=== PATIENT | female | born 1970 | race Caucasian/White ===

== ENCOUNTER → 2024-04-09 10:34 | Outpatient (BNVA) | payer BC, SELFPAY | PROVIDERS: Visit Provider Nurse Practitioner Family | DX: F41.9 Anxiety disorder, unspecified (principal); F32.A Depression, unspecified; E11.51 Type 2 diabetes mellitus with diabetic peripheral angiopathy without gangrene; I70.209 Unspecified atherosclerosis of native arteries of extremities, unspecified extremity; I10 Essential (primary) hypertension; E55.9 Vitamin D deficiency, unspecified | CPT/HCPCS: 80053; 80061; 81003; 82306; 83036; 84443; 85025 ==

== ENCOUNTER → 2024-07-18 09:48 | Outpatient (BNVA) | payer MEDICARE, SELFPAY | PROVIDERS: PCP Nurse Practitioner Family; Visit Provider Nurse Practitioner Family | DX: E55.9 Vitamin D deficiency, unspecified (principal); I10 Essential (primary) hypertension; E11.51 Type 2 diabetes mellitus with diabetic peripheral angiopathy without gangrene; I70.209 Unspecified atherosclerosis of native arteries of extremities, unspecified extremity; D50.9 Iron deficiency anemia, unspecified; J34.89 Other specified disorders of nose and nasal sinuses; Z86.14 Personal history of Methicillin resistant Staphylococcus aureus infection | CPT/HCPCS: 80053; 80061; 81003; 82306; 82607; 83036; 83550; 84443; 85025 ==

== ENCOUNTER → 2024-07-31 11:38 | Outpatient (BNVA) | payer MEDICARE, SELFPAY | PROVIDERS: PCP Nurse Practitioner Family; Visit Provider Nurse Practitioner Family | DX: L03.115 Cellulitis of right lower limb (principal) | CPT/HCPCS: 87070; 87075; 87205 ==

== ENCOUNTER → 2024-08-01 12:09 | Outpatient (BNVA) | payer MEDICARE, SELFPAY | PROVIDERS: PCP Nurse Practitioner Family; Visit Provider Podiatrist Foot & Ankle Surgery | DX: E11.621 Type 2 diabetes mellitus with foot ulcer (principal); L97.513 Non-pressure chronic ulcer of other part of right foot with necrosis of muscle; E11.51 Type 2 diabetes mellitus with diabetic peripheral angiopathy without gangrene; I70.201 Unspecified atherosclerosis of native arteries of extremities, right leg; Z79.84 Long term (current) use of oral hypoglycemic drugs | CPT/HCPCS: 11043; 99204 ==

== ENCOUNTER → 2024-08-06 11:42 | Outpatient (BNVA) | payer MEDICARE, SELFPAY | PROVIDERS: PCP Nurse Practitioner Family; Visit Provider Nurse Practitioner Family | DX: N39.0 Urinary tract infection, site not specified (principal) | CPT/HCPCS: 81003 ==

== ENCOUNTER → 2024-08-08 07:50 | Outpatient (BNVA) | payer MEDICARE, SELFPAY | PROVIDERS: PCP Nurse Practitioner Family; Visit Provider Thoracic Surgery (Cardiothoracic Vascular Surgery) | DX: I96 Gangrene, not elsewhere classified (principal); T87.81 Dehiscence of amputation stump; Y83.8 Other surgical procedures as the cause of abnormal reaction of the patient, or of later complication, without mention of misadventure at the time of the procedure; Z89.421 Acquired absence of other right toe(s) | CPT/HCPCS: 11042; 99213; A6212 ==

== ENCOUNTER → 2024-09-02 13:13 | Outpatient (BNVA) | payer MEDICARE, SELFPAY | PROVIDERS: PCP Nurse Practitioner Family; Visit Provider Thoracic Surgery (Cardiothoracic Vascular Surgery) | DX: I96 Gangrene, not elsewhere classified (principal); T87.81 Dehiscence of amputation stump; Y83.8 Other surgical procedures as the cause of abnormal reaction of the patient, or of later complication, without mention of misadventure at the time of the procedure; Z89.421 Acquired absence of other right toe(s) | CPT/HCPCS: 97597; A6219 ==

== ENCOUNTER 2025-01-19 21:34 | Inpatient (IN) | payer MEDICARE, SELFPAY ==
[2025-01-19 21:35] VITALS: BP 92/56; PULSE 61; RESP 15; TEMP 36.4; O2SAT 97; BMI 37.2
--- NOTE | 2025-01-19 21:40 | ED_ITS ---
HPI - General Adult 2 General: Chief complaint: Syncope Stated complaint: SYNCOPE, WEAKNESS Time Seen by Provider: 01/19/25 21:40 History of Present Illness: 54-year-old female presents emergency ro om complaining of syncope and weakness. Patient lives in the home states she has no access to her conditioning she has had significant exposure to heat last few days she is on lisinopril and metformin she developed nausea vomiting and headache. Patient is diabetic her blood sugar in the field was 96. She was given a liter of normal saline and a liter of Plasma-Lyte en route despite this her blood pressure still in 80 systolic on arrival. Patient had episode of syncope after nausea and vomiting fell and hit her head she is on Eliquis for DVT PE. She has several abrasions on the right cheek. Associated symptoms: Reports nausea and vomiting; Deny chest pain, dyspnea or rash Related Data Home Medications ?Medication ?Instructions ?Recorded ?Confirmed cetirizine 10 mg capsule (Zyrtec) 10 mg PO DAILY PRN 1 08/21/24 diclofenac sodium 1 % topical gel 2 g topical QID 03/2508/21/24 (Voltaren Arthritis Pain) fluticasone propionate 50 1 spray intranasal DAILY 03/2508/21/24 mcg/actuation nasal spray,suspension (Flonase Allergy Relief) nystatin 100,000 unit/gram topical 1 applic topical BI D 04/09/24 08/21/24 powder pantoprazole 40 mg tablet,delayed 40 mg PO DAILY 04/0908/21/24 release Previous Rx's ?Medication ?Instructions ?Recorded albuterol sulfate 90 mcg/actuation 2 puff inhalation Q ID 30 days #8.5 04/09/24 aerosol inhaler grams ferrous sulfate 325 mg (65 mg 325 mg PO DAILY 30 days #30 tabs 05/15/24 iron) tablet ketoconazole 2 % shampoo 1 applic topical .twice week ly 30 06/10/24 days #120 mL mupirocin 2 % topical ointment 1 applic topical BID #1 5 grams 07/18/24 cholecalciferol (vitamin D3) 1,250 50,000 unit PO .wejani kly 3 months 07/24/24 mcg (50,000 unit) tablet #13 tabs methylprednisolone 4 mg tablets in See Rx Instructions PO PER PKG DIR 07/24/24 a dose pack (Medrol (Crow)) #21 ea clindamycin HCl 300 mg capsule 600 mg (2 x 300 mg) PO BID 10 days 07/31/24 #40 caps metformin 500 mg tablet,extended 1,000 mg (2 x 500 mg) PO BID #360 09/02/24 release 24 hr tabs pregabalin 150 mg capsule 150 mg PO BID 30 days #60 ca ps 09/02/24 duloxetine 60 mg capsule,delayed 60 mg PO DAILY 30 day s #30 caps 10/13/24 release rivaroxaban 10 mg tablet (Xarelto) See Rx Instructions .Route 11/10/24 .COMPLEX #30 tabs tizanidine 2 mg tablet See Rx Instructions .Route 0 11/19/24 .COMPLEX #90 tabs trazodone 100 mg tablet 100 mg PO DAILY 30 days #30 tabs 11/19/24 lisinopril 40 mg tablet See Rx Instructions .Route 0 12/18/24 .COMPLEX #90 tabs metoprolol succinate 200 mg 200 mg PO DAILY #30 tabs 0 12/25/24 tablet,extended release 24 hr Allergies Allergy/AdvReac Type Severity Reaction Status Date / Time Penicillins Allergy Intermediate ADR-Itching Verified 08/21/24 14:04 Review of Systems 2 Const: Denies: fever(s) or chills Card: Denies: chest pain Resp: Denies: dyspnea GI: Reports: nausea, vomiting and diarrhea; Denies: abdominal pain, hematemesis, coffee ground emesis, hematochezia or melena : Denies: dysuria, urinary frequency or urinary urgency Musc: Denies: neck pain or back pain Skin/Breast: Denies: rash PFSH ED 2 PFSH: Medical History Cellulitis of foot Cellulitis of right foot Cellulitis Allergic contact dermatitis of scalp Urinary tract infection Hx of mitral valve disorder History of MRSA infection Nasal sore Seborrheic dermatitis Iron deficiency anemia Neuropathy of both feet Diabetic foot Amputated toe of right foot Amputated toe of left foot Influenza vaccine needed Chronic obstructive pulmonary disease Muscle spasm Breast cancer screening by mammogram Vitamin D deficiency Chronic anticoagulation Diabetic neuropathy, painful Insomnia Anxiety and depression Gastroesophageal reflux disease Hx pulmonary embolism Essential hypertension 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 Social History Smoking and tobacco/nicotine status: current every day tobacco/nicotine user cigarettes Packs smoked per day: 1 Years cigarettes smoked: 35 Quit status (tobacco/nicotine): not considering quitting Second hand smoke exposure: No Alcohol intake: former Year of sobriety/quit date alcohol: 3 Former alcohol use details: vodka and tequila Substance/Drug Use: current Substance/Drug use frequency: daily Adopted: No Caregiver/support person: Yes (lives with friend) Lives independently: No Household members: significant other Housing: Apartment Marital status: Life Partner Physical Exam 2 Const: GENERAL APPEARANCE: cooperative ORIENTATION/CONSCIOUSNESS: Yes awake, Yes oriented to person, Yes oriented to place and Yes oriented to time HENMT: COMMON NORMALS: normocephalic, atraumatic and hearing grossly normal bilaterally HEAD & SCALP: normocephalic and atraumatic Resp: COMMON NORMALS: normal respiratory effort, No retractions, No use of accessory muscles and clear to auscultation bilaterally AUSCULTATION: clear to auscultation bilaterally Cardio: COMMON NORMALS: regular rate, regular rhythm and No murmurs present (Cardio) RATE: regular rate RHYTHM: regular rhythm GI: COMMON NORMALS: Soft to palpation and No hepatosplenomegaly present A USCULTATION: Yes normoactive bowel sounds PALPATION: Yes Soft to palpation, No Tenderness to palpation present (GI), No Guarding due to palpation present (GI) and Yes No hepatosplenomegaly present Extremity: COMMON NORMALS: normal to inspection, capillary refill normal, no clubbing, cyanosis or edema, no calf tenderness and no pedal edema Neuro: SENSORIUM/ORIENTATION: Yes oriented to person, Yes oriented to place and Yes oriented to time Skin: COMMON NORMALS: no rashes or lesions noted GENERAL SKIN EXAM: no rashes or lesions noted Course 2 Vital Signs: Vital signs: Vital Signs Temperature 97.6 F 01/19/25 21:35 Pulse Rate 61 01/19/25 21:35 Respiratory Rate 15 01/19/25 21:35 Blood Pressure 92/56 01/19/25 21:35 Pulse Oximetry 97 01/19/25 21:35 Oxygen Delivery Me thod Room Air 01/19/25 21:35 MDM - General Adult Lab Data 01/19/25 22:07 01/19/25 22:[address] 01/19/25 21:58 IMPRESSION: No acute intracranial abnormality. Laboratory Results WBC 11.63 10^3/uL (3.29-11.43) H 01/19/25 22:07 RBC 4.94 10^6/uL (3.85-5.65) 01/19/25 22:07 Hgb 12.70 g/dL (11.27-16.99) 01/19/25 22:07 Hct 43.0 % (36-47) 01/19/25 22:07 MCV 87.0 fl (85-98) 01/19/25 22:07 MCH 25.7 pg (27-33) L 01/19/25 22:07 MCHC 29.5 g/dL (30-55) L 01/19/25 22:07 RDW 18.6 % (12.1-15.1) H 01/19/25 22:07 Plt Count 382 10^3/cmm (157-399) 01/19/25 22:07 MPV 10.8 fL (7.4-10.4) H 01/19/25 22:07 Neut % (Auto) 72.4 % 01/19/25 22:07 Lymph % (Auto) 18.3 % 01/19/25 22:07 O'Brien % (Auto) 5.9 % 01/19/25 22:07 Eos % (Auto) 2.6 % 01/19/25 22:07 Baso % (Auto) 0.5 % 01/19/25 22:07 Neut # (Auto) 8.41 10^3/uL (1.8-7.7) H 01/19/25 22:07 Lymph # (Auto) 2.1 10^3/uL (0.8-4.8) 01/19/25 22:07 O'Brien # (Auto) 0.7 10^3/uL (0.2-0.9) 01/19/25 22:07 Eos # (Auto) 0.3 10^3/uL (0.0-0.8) 01/19/25 22:07 Baso # (Auto) 0.1 10^3/uL (0.0-0.1) 01/19/25 22:07 Nucleated RBC % (auto) 0 % 01/19/25 22:07 Nucleated RBCs # 0.0 /100WBC 01/19/25 22:07 Sodium 138 mmol/L (136-145) 01/19/25 22:07 Potassium 4.4 mmol/L (3.5-5.1) 01/19/25 22:07 Chloride 104 mmol/L (98-107) 01/19/25 22:07 Carbon Dioxide 18 mmol/L (22-29) L 01/19/25 22:07 Anion Gap 20.4 (5-19) H 01/19/25 22:07 BUN 40 mg/dL (6-20) H 01/19/25 22:07 Creatinine 3.0 mg/dL (0.5-0.9) H 01/19/25 22:07 GFR Calculation 16.1 mL/min (90-130) L 01/19/25 22:07 Glucose 92 mg/dL (65-115) 01/19/25 22:07 Calculated Osmolality 295 mOsm/kg (285-295) 01/19/25 22:07 Calcium 8.5 mg/dL (8.5-10.5) 01/19/25 22:07 Total Bilirubin 0.3 mg/dL (0.15-1.2) 01/19/25 22:07 AST 8 U/L (0-32) 01/19/25 22:07 ALT 7 U/L (0-33) 01/19/25 22:07 Alkaline Phosphatase 155 U/L (35-105) H 01/19/25 22:07 Total Protein 6.9 g/dL (6.6-8.7) 01/19/25 22:07 Albumin 3.6 g/dL (3.5-5.2) 01/19/25 22:07 Globulin 3.3 g/dL (1.3-4.6) 01/19/25 22:07 Discharge Plan Discharge Condition: Stable Prescriptions: No Action ferrous sulfate 325 mg (65 mg iron) tablet 325 mg PO DAILY 30 Days Qty: 30 1RF mupirocin 2 % ointment 1 applic topical BID Qty: 15 1RF clindamycin HCl 300 mg capsule 600 mg PO BID 10 Days Qty: 40 0RF Zyrtec 10 mg capsule 10 mg PO DAILY PRN pantoprazole 40 mg tablet,delayed release (DR/EC) 40 mg PO DAILY diclofenac sodium [Voltaren Arthritis Pain] 1 % gel 2 g topical QID Rx Instructions: apply to single elbow, wrist or hand; for hand includes palm/fingers/back of hand fluticasone propionate [Flonase Allergy Relief] 50 mcg/actuation spray,suspension 1 spray intranasal DAILY Rx Instructions: administer into each nostril nystatin 100,000 unit/gram powder 1 applic topical BID albuterol sulfate 90 mcg/actuation HFA aerosol inhaler 2 puff inhalation QID 30 Days Qty: 8.5 5RF methylprednisolone [Medrol (Crow)] 4 mg tablets,dose pack See Rx Instructions PO PER PKG DIR Qty: 21 0RF Rx Instructions: PO PER PKG DIR PO per package directions; cholecalciferol (vitamin D3) 1,250 mcg (50,000 unit) tablet 50,000 unit PO .weekly 90 Days Qty: 13 1RF metoprolol succinate 200 mg tablet extended release 24 hr 200 mg PO DAILY Qty: 30 2RF ketoconazole 2 % shampoo 1 applic topical .twice weekly 30 Days Qty: 120 5RF Rx Instructions: Lather shampoo and leave on for 5 minutes then rinse. Can use twice weekly as needed metformin 500 mg tablet extended release 24 hr 1,000 mg PO BID Qty: 360 0RF pregabalin 150 mg capsule 150 mg PO BID 30 Days Qty: 60 2RF duloxetine 60 mg capsule,delayed release(DR/EC) 60 mg PO DAILY 30 Days Qty: 30 2RF Rx Instructions: Can have 90 day supply if insurance is agreeable Xarelto 10 mg tablet See Rx Instructions .ROUTE .COMPLEX Qty: 30 2RF Dose Instruction: TAKE 1 TABLET BY MOUTH DAILY Rx Instructions: TAKE 1 TABLET BY MOUTH DAILY tizanidine 2 mg tablet See Rx Instructions .ROUTE .COMPLEX Qty: 90 0RF Dose Instruction: TAKE 1 TABLET BY MOUTH EVERY 8 HOURS NEEDED FOR MUSCLE SPASMS Rx Instructions: TAKE 1 TABLET BY MOUTH EVERY 8 HOURS NEEDED FOR MUSCLE SPASMS trazodone 100 mg tablet 100 mg PO DAILY 30 Days Qty: 30 2RF lisinopril 40 mg tablet See Rx Instructions .ROUTE .COMPLEX Qty: 90 1RF Dose Instruction: TAKE 1 TABLET BY MOUTH EVERY DAY Rx Instructions: TAKE 1 TABLET BY MOUTH EVERY DAY Referrals: JONY Diaz, [facility] [Nurse Practitioner, Family Practice] Print Language: Ecuadorean Coding Level of Care Code ED [employer] Attendant for Orlando Patel
--- NOTE | 2025-01-19 21:41 | ECG_ITS ---
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 Measurements Intervals [place] Rate: 60 P: 53 WA: 162 QRS: 31 QRSD: 93 T: 42 QT: 427 QTc: 427 Interpretive Statements SINUS RHYTHM LOW QRS VOLTAGE IN PRECORDIAL LEADS [QRS DEFLECTION < 1.0 mV IN CHEST LEADS] No previous ECG available for comparison Electronically Signed On 01-22-2025 09:05:48 CDT by Puma Butterfield M.D. [id number]
--- NOTE | 2025-01-19 21:58 | CTR_ITS ---
PROCEDURE INFORMATION: Exam: CT Head Without Contrast Exam date and time: 01/19/2025 10:22 PM Age: 54 years old Clinical indication: Injury or trauma; Fall; Blunt trauma (contusions or hematomas) and concussion/head injury; With loss of consciousness; Not specified; Additional info: Trauma chronic anticoagulation TECHNIQUE: Imaging protocol: Computed tomography of the head without contrast. Radiation optimization: All CT scans at this facility use at least one of these dose optimization techniques: automated exposure control; mA and/or kV adjustment per patient size (includes targeted exams where dose is matched to clinical indication); or iterative reconstruction. COMPARISON: No relevant prior studies available. RADIATION DOSE METRICS: Total DLP (mGy-cm): 1068.4 FINDINGS: Brain: No hemorrhage. No edema, mass effect or midline shift. Cerebral ventricles: No ventriculomegaly. Paranasal sinuses: Visualized sinuses are unremarkable. No fluid levels. Mastoid air cells: No mastoid effusion. Bones: Unremarkable. No acute fracture. Soft tissues: Unremarkable. CT/CT head wo con* [id number] IMPRESSION: No acute intracranial abnormality.
[2025-01-19 22:13] VITALS: BP 100/69; PULSE 57; RESP 13; O2SAT 100
[2025-01-19 22:37] LABS: Hematocrit 43.0 % (36-47); Hemoglobin 12.70 g/dL (11.27-16.99); Mean Corpuscular HGB Conc 29.5 g/dL (30-55); Mean Corpuscular Hemoglobin 25.7 pg (27-33); Mean Corpuscular Volume 87.0 fl (85-98); Nucleated Red Blood Cells % 0 %; Platelet Count 382 10^3/cmm (157-399); Red Blood Count 4.94 10^6/uL (3.85-5.65); White Blood Count 11.63 10^3/uL (3.29-11.43)
[2025-01-19 22:43] VITALS: BP 83/60; PULSE 57; RESP 14; O2SAT 98
[2025-01-19] MEDS: tetanus-dipt-pertussis 0.5 mL SDV IM (22:58)
[2025-01-19 22:59] LABS: Alanine Aminotransferase 7 U/L (0-33); Albumin Level 3.6 g/dL (3.5-5.2); Alkaline Phosphatase 155 U/L (35-105); Anion Gap 20.4 (5-19); Aspartate Amino Transferase 8 U/L (0-32); Blood Urea Nitrogen 40 mg/dL (6-20); Calcium 8.5 mg/dL (8.5-10.5); Carbon Dioxide 18 mmol/L (22-29); Chloride 104 mmol/L (98-107); Creatinine Clr Calc Pharmacy 22.9874; Globulin 3.3 g/dL (1.3-4.6); Glucose 92 mg/dL (65-115); Osmolality Calculated 295 mOsm/kg (285-295); Potassium 4.4 mmol/L (3.5-5.1); Sodium 138 mmol/L (136-145); Total Protein 6.9 g/dL (6.6-8.7)
[2025-01-19 23:13] VITALS: BP 100/62; PULSE 58; RESP 15; O2SAT 99
[2025-01-19 23:38] VITALS: BP 100/61; BP 103/61; BP 86/58; BP 87/50; PULSE 55; PULSE 57; PULSE 60; PULSE 70; RESP 13; O2SAT 98
[2025-01-19 23:42] LABS: Glucose Urine UA Negative (Normal); Nitrate Urine Negative (Negative); Specific Gravity, Urine 1.017 (1.005-1.030)
[2025-01-19 23:47] LABS: Add Urine Microscopic? YES; Universal Test for UA Present (0)
[2025-01-20] VITALS (9 sets, daily range): BP systolic 94–131; BP diastolic 61–84; PULSE 55–79; RESP 12–18; TEMP 36.3–36.4; O2SAT 95–98
[2025-01-20 00:17] LABS: UA Slide Review UA Slide Review Perf
--- NOTE | 2025-01-20 01:17 | P.HP_ITS ---
Providers/Chief Complaint 2 Admitting Physician: Jenni Manning MD Chief Complaint: SYNCOPE, WEAKNESS History of Present Illness Britt Avalos is a 54 year old female with past medical history of diabetes mellitus, history of PE on chronic a/c, presenting to the hospital today with a week of being unwell. Patient reports that about 6 days ago she started to experience multiple episodes of nausea per day. She also felt extremely dehydrated in her home. She states that her home currently does not have any air and no cooling. She has been going outdoors into her garden to try to stay cool. She denies any abdominal pain or diarrhea. Reports that her boyfriend had similar symptoms of nausea and vomiting prior to her having acquired the symptoms however he has been asymptomatic for over a week at this point. Denies any chest pain dyspnea or palpitations. Today during an episode of vomiting, patient states that she lost consciousness. She fell to the floor and has a scratch over the right side of her face as a result of this fall. No other injuries are reported. Denies any fever. Denies any weakness in any limb. Labs are notable for FAWN with creatinine at 3.0 Review of Systems 2 General: Reports: 10 or more systems reviewed and unremarkable except in HPI and below Const: Denies: fever(s), chills or body aches Eyes: Denies: change in vision, blurry vision or photophobia ENMT: Reports: hoarseness; Denies: throat pain, enlarged tonsils, odynophagia or nasal congestion Card: Denies: chest pain, palpitations, irregular heart rhythm, edema, swelling of feet/ankles, lightheadedness, pre-syncope, dyspnea on exertion or orthopnea Resp: Denies: dyspnea, productive cough, non-productive cough, wheezing, stridor, pain on inspiration, change in phlegm color, hemoptysis or chest congestion GI: Denies: abdominal pain, nausea, vomiting, hematemesis, coffee ground emesis, dysphagia, heartburn, diarrhea, constipation, GI cramping, change in stool character, hematochezia or melena : Denies: flank pain, difficulty voiding, dysuria, urinary frequency, urinary urgency, urinary hesitancy or hematuria Musc: Denies: neck pain, back pain, extremity pain, joint swelling, joint warmth or deformity Neuro: Denies: headache(s), numbness in extremities, weakness in extremities, sensory changes, difficulty walking, frequent falls, dizziness, vertigo, behavioral changes, Slurred speech present or seizure-like activity Psych: Denies: anxiety, depression, suicidal ideation or homicidal ideation Endo: Denies: polyuria, polydipsia, tired all the time, cold intolerance or hot flashes Immanuel/Lymph: Denies: easy bruising or easy bleeding Medications/Allergies Home Medications ?Medication ?Instructions ?Recorded ?Confirmed ?Last Taken ?Type albuterol sulfate 90 mcg/actuation 2 puff inhalation Q ID 30 days #8.5 04/09/24 08/21/24 Unknown Rx aerosol inhaler grams cetirizine 10 mg capsule (Zyrtec) 10 mg PO DAILY PRN 1 08/21/24 Unknown History diclofenac sodium 1 % topical gel 2 g topical QID 03/2508/21/24 Unknown History (Voltaren Arthritis Pain) fluticasone propionate 50 1 spray intranasal DAILY 03/2508/21/24 Unknown History mcg/actuation nasal spray,suspension (Flonase Allergy Relief) nystatin 100,000 unit/gram topical 1 applic topical BI D 04/09/24 08/21/24 Unknown History powder pantoprazole 40 mg tablet,delayed 40 mg PO DAILY 04/0908/21/24 Unknown History release ferrous sulfate 325 mg (65 mg 325 mg PO DAILY 30 days #30 tabs 05/15/24 08/21/24 Unknown Rx iron) tablet ketoconazole 2 % shampoo 1 applic topical .twice week ly 30 06/10/24 08/21/24 Unknown Rx days #120 mL mupirocin 2 % topical ointment 1 applic topical BID #1 5 grams 07/18/24 08/21/24 Unknown Rx cholecalciferol (vitamin D3) 1,250 50,000 unit PO .donald kly 3 months 07/24/24 08/21/24 Unknown Rx mcg (50,000 unit) tablet #13 tabs methylprednisolone 4 mg tablets in See Rx Instructions PO PER PKG DIR 07/24/24 08/21/24 Unknown Rx a dose pack (Medrol (Crow)) #21 ea clindamycin HCl 300 mg capsule 600 mg (2 x 300 mg) PO BID 10 days 07/31/24 08/21/24 Unknown Rx #40 caps metformin 500 mg tablet,extended 1,000 mg (2 x 500 mg) PO BID #360 09/02/24 Unknown Rx release 24 hr tabs pregabalin 150 mg capsule 150 mg PO BID 30 days #60 ca ps 09/02/24 Unknown Rx duloxetine 60 mg capsule,delayed 60 mg PO DAILY 30 day s #30 caps 10/13/24 Unknown Rx release rivaroxaban 10 mg tablet (Xarelto) See Rx Instructions .Route 11/10/24 Unknown Rx .COMPLEX #30 tabs tizanidine 2 mg tablet See Rx Instructions .Route 0 11/19/24 Unknown Rx .COMPLEX #90 tabs trazodone 100 mg tablet 100 mg PO DAILY 30 days #30 tabs 11/19/24 Unknown Rx lisinopril 40 mg tablet See Rx Instructions .Route 0 12/18/24 Unknown Rx .COMPLEX #90 tabs metoprolol succinate 200 mg 200 mg PO DAILY #30 tabs 0 12/25/24 12/25/24 Unknown Rx tablet,extended release 24 hr Allergies Allergy/AdvReac Type Severity Reaction Status Date / Time Penicillins Allergy Intermediate ADR-Itching Verified 08/21/24 14:04 PFSH Acute 2 PFSH: Medical History Cellulitis of foot Cellulitis of right foot Cellulitis Allergic contact dermatitis of scalp Urinary tract infection Hx of mitral valve disorder History of MRSA infection Nasal sore Seborrheic dermatitis Iron deficiency anemia Neuropathy of both feet Diabetic foot Amputated toe of right foot Amputated toe of left foot Influenza vaccine needed Chronic obstructive pulmonary disease Muscle spasm Breast cancer screening by mammogram Vitamin D deficiency Chronic anticoagulation Diabetic neuropathy, painful Insomnia Anxiety and depression Gastroesophageal reflux disease Hx pulmonary embolism Essential hypertension 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 Social History Smoking and tobacco/nicotine status: current every day tobacco/nicotine user cigarettes Packs smoked per day: 1 Years cigarettes smoked: 35 Quit status (tobacco/nicotine): not considering quitting Second hand smoke exposure: No Alcohol intake: former Year of sobriety/quit date alcohol: 3 Former alcohol use details: vodka and tequila Substance/Drug Use: current Substance/Drug use frequency: daily Adopted: No Caregiver/support person: Yes (lives with friend) Lives independently: No Household members: significant other Housing: Apartment Marital status: Life Partner Vitals/I&O/Wt Last Vital Signs Temp 97.6 F 01/19/25 21:35 Pulse 55 L 01/19/25 23:38 Resp 13 01/19/25 23:38 BP 103/61 01/19/25 23:38 Pulse Ox 98 01/19/25 23:38 O2 Del Method Room Air 01/19/25 23:38 01/19/25 01/19/25 01/20/25 14:59 22:59 06:59 Intake Total 1000 / 1000 Balance 1000 / 1000 Weight last 48 hrs Weight 95.254 kg Physical Exam 2 Narrative: General: No acute distress, AO x3 HEENT: PERRLA, pupils bilaterally equal and reactive, pallors not present Chest: Normal vesicular breath sounds, no added sounds, equal good air entry bilaterally CVS: S1-S2 regular, no murmurs, no tachycardia, no gallops, no rubs Abdomen: Soft, nontender, no organomegaly, bowel sounds present Neuro: No focal deficits, no facial deformity, AO x3, power 5/5 in all limbs Data 01/19/25 22:07 01/19/25 22:07 Other Labs: Radiology Impressions Head CT 01/19/25 21:58 IMPRESSION: No acute intracranial abnormality. Abdomen/Pelvis CT 01/20/25 01:24 IMPRESSION: No hydronephrosis. No calcified renal or ureteral stones. Laboratory Results WBC 11.63 10^3/uL (3.29-11.43) H 01/19/25 22:07 RBC 4.94 10^6/uL (3.85-5.65) 01/19/25 22:07 Hgb 12.70 g/dL (11.27-16.99) 01/19/25 22:07 Hct 43.0 % (36-47) 01/19/25 22:07 MCV 87.0 fl (85-98) 01/19/25 22:07 MCH 25.7 pg (27-33) L 01/19/25 22:07 MCHC 29.5 g/dL (30-55) L 01/19/25 22:07 RDW 18.6 % (12.1-15.1) H 01/19/25 22:07 Plt Count 382 10^3/cmm (157-399) 01/19/25 22:07 MPV 10.8 fL (7.4-10.4) H 01/19/25 22:07 Neut % (Auto) 72.4 % 01/19/25 22:07 Lymph % (Auto) 18.3 % 01/19/25 22:07 [place] % (Auto) 5.9 % 01/19/25 22:07 Eos % (Auto) 2.6 % 01/19/25 22:07 Baso % (Auto) 0.5 % 01/19/25 22:07 Neut # (Auto) 8.41 10^3/uL (1.8-7.7) H 01/19/25 22:07 Lymph # (Auto) 2.1 10^3/uL (0.8-4.8) 01/19/25 22:07 [place] # (Auto) 0.7 10^3/uL (0.2-0.9) 01/19/25 22:07 Eos # (Auto) 0.3 10^3/uL (0.0-0.8) 01/19/25 22:07 Baso # (Auto) 0.1 10^3/uL (0.0-0.1) 01/19/25 22:07 Nucleated RBC % (auto) 0 % 01/19/25 22:07 Nucleated RBCs # 0.0 /100WBC 01/19/25 22:07 Sodium 138 mmol/L (136-145) 01/19/25 22:07 Potassium 4.4 mmol/L (3.5-5.1) 01/19/25 22:07 Chloride 104 mmol/L (98-107) 01/19/25 22:07 Carbon Dioxide 18 mmol/L (22-29) L 01/19/25 22:07 Anion Gap 20.4 (5-19) H 01/19/25 22:07 BUN 40 mg/dL (6-20) H 01/19/25 22:07 Creatinine 3.0 mg/dL (0.5-0.9) H 01/19/25 22:07 GFR Calculation 16.1 mL/min (90-130) L 01/19/25 22:07 Glucose 92 mg/dL (65-115) 01/19/25 22:07 Calculated Osmolality 295 mOsm/kg (285-295) 01/19/25 22:07 Calcium 8.5 mg/dL (8.5-10.5) 01/19/25 22:07 Total Bilirubin 0.3 mg/dL (0.15-1.2) 01/19/25 22:07 AST 8 U/L (0-32) 01/19/25 22:07 ALT 7 U/L (0-33) 01/19/25 22:07 Alkaline Phosphatase 155 U/L (35-105) H 01/19/25 22:07 Troponin T 5th Gen ng/L 9 ng/L (0-10) 01/19/25 22:07 Total Protein 6.9 g/dL (6.6-8.7) 01/19/25 22:07 Albumin 3.6 g/dL (3.5-5.2) 01/19/25 22:07 Globulin 3.3 g/dL (1.3-4.6) 01/19/25 22:07 Urine Color Yellow (Yellow) 01/19/25 23: Urine Appearance Cloudy (CLEAR) A 01/19/25 23: Urine pH 5.0 (5-7) 01/19/25 23: Ur Specific [place] 1.017 (1.005-1.030) 01/19/25 23: Urine Protein 1+ (Negative) A 01/19/25 23: Urine Glucose (UA) Negative (Normal) 01/19/25 23: Urine Ketones Trace (Negative) 01/19/25 23: Urine Blood Negative (Negative) 01/19/25: Urine Nitrate Negative (Negative) 01/19/25 23: Urine Bilirubin Negative (Negative) 01/19/25: Urine Urobilinogen 1.0 mg/dL (Negative) 01/19/25 23: Ur Leukocyte Esterase 2+ (Negative) A 01/19/25 23: Urine RBC 6-10 /hpf (0-2) 01/19/25 23:27 Urine WBC 51-100 /hpf (0-5) H 01/19/25 23:27 Ur Squamous Epith Cells 21-50 /hpf (0-5) H 01/19/25 23: Amorphous Sediment Not Reportable 01/19/25 23:27 Urine Bacteria 1+ /hpf (NONE) H 01/19/25 23:27 Hyaline Casts 176.66 /lpf 01/19/25 23:27 A&P Assessment and plan 1. FAWN (acute kidney injury): 54-year-old lady living at [facility], presenting with acute kidney injury with creatinine at 3.0. Previously noted normal kidney function with creatinine at 0.5 from July 2024. This is likely related to dehydration from combination of extreme heat and GI losses by way of vomiting. CT of the abdomen and pelvis has been ordered after admission. Currently does not show any obstructive pathology or hydronephrosis. Urine analysis showing 1+ proteinuria, 51-100 WBCs, however this does not appear to be a clean-catch specimen as it has 21-50 squamous epithelial cells additionally. Check CPK, TSH, hepatitis serology. Continue normal saline at 150 cc an hour as already started in the emergency room. Recheck creatinine with hydration, closely monitor urine output. 2. Syncope and collapse: Patient had a syncopal episode at home resulting in abrasions over the right side of her face. No gross tenderness at this time. No visual disturbances. CT head without any acute abnormality. No bony fractures. Suspect this may be related to orthostatic hypotension versus vasovagal as patient reports vomiting at the time of her syncope. Patient also noted to have sinus bradycardia with heart rate between 50-60. Will monitor closely on telemetry to see if bradycardia may have contributed to her syncopal episode. Home medication list shows metoprolol which we will hold for now, perhaps would need to be resumed at a lower dose. Obtain echocardiogram as chart notes a prior history of valvular disorder of the mitral valve and obtain carotid Doppler. 3. Dehydration: Likely from GI loss and extreme heat 4. Essential hypertension: Currently will hold lisinopril given acute kidney injury. 5. Chronic anticoagulation: Plan: Patient's home medication list needs to be verified and reconciled. DVT prophylaxis: Currently on Xarelto which we will continue Full code Requesting nicotine patch due to a history of chronic smoking, this has been ordered PDMP PDMP Reviewed: Not Reviewed Attestations 2 Medical Necessity Statement*: Greater than 2 midnight stay is anticipated Coding Level of Care Code Acute Code for [facility] Diagnoses FAWN (acute kidney injury) N17.9 Syncope and collapse R55 Dehydration E86.0 Essential hypertension I10 Chronic anticoagulation Z79.01
--- NOTE | 2025-01-20 01:24 | USCV_ITS ---
Josepfranklin Britt Age: 54 Gender: F : 1970 Exam Date: 01/20/2025 02:58 Ordering Phys: Jenni Manning MD Technologist: KAMILA [place] [facility] [place]: [place] Risk Factors: unknown Previous Vascular Surgery: unknown Right Brachial BP: 103 / 61 Left Brachial BP: / Right Left Velocity (cm/s) Spectral Plaque Velocity (cm/s) Spectral Plaque Syst/Diast Broadening Syst/Diast Broadening 92.10/ 22.00 Min Homo Prox CCA 64.70 / 24.10 Min Homo 72.60/ 28.40 Min Homo Mid CCA 64.30 / 20.60 Min Homo 40.00/ 16.70 Mod Shashi Distal CCA 52.20 / 26.00 Mod Shashi 63.40/ 19.30 Min Shashi Prox ICA 94.20 / 36.60 Min Shashi 84.70/ 34.60 Min Homo Mid ICA 59.90 / 19.50 Min Homo 53.60/ 19.70 Min Homo Distal ICA 68.50 / 25.60 Min Hetro 60.80 Min Hetro ECA 77.20 Min Hetro 2.10 ICA/CCA 1.80 Antegrade Vertebral Antegrade 24.40/ 6.50 cm/s 29.60/ 10.90 cm/s Tri Subclavian Tri 91.10 95.50 FINDINGS Comparison: none available. No significant elevation of systolic or diastolic velocities. Diffuse, mild bilateral scattered calcified plaque and intimal thickening throughout the common carotid arteries and extending through the bifurcation. Antegrade vertebral arteries. CONCLUSIONS Bilateral ICA stenosis less than 50%. Mild diffuse carotid atherosclerotic disease. Dr. Tiny Paul DO (Electronically Signed) Final Date: 20 January 2025 08:03 S
--- NOTE | 2025-01-20 01:24 | CTR_ITS ---
PROCEDURE INFORMATION: Exam: CT Abdomen And Pelvis Without Contrast Exam date and time: 01/20/2025 1:38 AM Age: 54 years old Clinical indication: Other: Signs of hydronephrosis; Additional info: Assess for hydronephrosis TECHNIQUE: Imaging protocol: Computed tomography of the abdomen and pelvis without contrast. Radiation optimization: All CT scans at this facility use at least one of these dose optimization techniques: automated exposure control; mA and/or kV adjustment per patient size (includes targeted exams where dose is matched to clinical indication); or iterative reconstruction. COMPARISON: No relevant prior studies available. RADIATION DOSE METRICS: Total DLP (mGy-cm): 849.4 FINDINGS: Liver: Hepatomegaly. Fatty liver. Gallbladder and biliary ducts: No calcified stones. No ductal dilation. Pancreas: No ductal dilation. Spleen: No splenomegaly. Adrenal glands: Normal. No mass. Kidneys and ureters: No hydronephrosis. No calcified renal or ureteral stones. Stomach and bowel: No obstruction. No mucosal thickening. Appendix: No evidence of appendicitis. Intraperitoneal space: No free air. No significant fluid collection. Vasculature: No abdominal aortic aneurysm. Lymph nodes: No enlarged lymph nodes. Urinary bladder: Unremarkable as visualized. Reproductive: Unremarkable. Bones/joints: Unremarkable. No acute fracture. Soft tissues: Unremarkable. CT/CT kidney stone [id number] IMPRESSION: No hydronephrosis. No calcified renal or ureteral stones.
--- NOTE | 2025-01-20 01:24 | USCV_ITS ---
Britt Avalos Age: 54 Gender: F : 1970 Exam Date: 01/20/2025 03:23 Ordering Phys: Jenni Manning MD Technologist: KAMILA Exam Location: [facility] – [place] Indication: syncope BP: 103 / 61 HR: 52 Rhythm: Sinus bradycardia Technical Quality: Adequate MEASUREMENTS (Male / Female) Normal Values 2D ECHO LV Diastolic Diameter PLAX 4.3 cm 4.2 - 5.9 / 3.9 - 5.3 cm IVS Diastolic Thickness 1.2 cm 0.6 - 1.0 / 0.6 - 0.9 cm IVS Systolic Thickness 1.6 cm LVPW Diastolic Thickness 1.5 cm 0.6 - 1.0 / 0.6 - 0.9 cm LVPW Systolic Thickness 1.3 cm LVOT Diameter 1.8 cm LV Ejection Fraction 2D Teich 60.5 % LV Ejection Fraction MOD 4C 58.4 % LV Ejection Fraction MOD 2C 69.6 % LV Ejection Fraction 2C AL 70.0 % LA Diameter 3.1 cm Aorta at Sinotubular Diameter 2.9 cm IVC Diameter 1.3 cm M-MODE LA Ao Ratio MM 0.9 AV Cusp Separation MM 1.7 cm DOPPLER AV Peak Velocity 154.0 cm/s LVOT Peak Velocity 154.0 cm/s AV Area Cont Eq vti 2.9 cm squared AV Area Cont Eq pk 2.5 cm squared MV Peak Velocity 98.0 cm/s MV Area PHT 2.6 cm squared Mitral E to A Ratio 0.8 TV Peak E Velocity 49.0 cm/s PV Peak Velocity 91.0 cm/s FINDINGS Left Ventricle Left ventricle is normal in size. LV systolic function is normal with EF 55-60%. No regional wall motion abnormalitis are seen. Grade 1 diastolic dysfunction. Right Ventricle Normal in size and function Right Atrium Normal in size Left Atrium Normal in size Mitral Valve Structurally normal mitral valve. Trace mitral regurgitation Aortic Valve Structurally normal aortic valve. No significant stenosis or regurgitation Tricuspid Valve Insufficient TR jet to estimate RVSP Pulmonic Valve Not well visualized Pericardium Normal Aorta Normal in size IVC Appears to be normal CONCLUSIONS LV systolic function is normal with EF of 55 to 60%. Grade 1 diastolic dysfunction. Trace mitral regurgitation. Puma Butterfield MD (Electronically Signed) Final Date: 20 January 2025 09:53 S
[2025-01-20 01:52] LABS: Troponin T (5th) Once 9 ng/L (0-10)
[2025-01-20 08:10] LABS: Hepatitis A Antibody IgM Non-Reactive (Nonreactive); Hepatitis B Surface Antigen Non-Reactive (Nonreactive)
[2025-01-20 11:38] LABS: Alanine Aminotransferase 7 U/L (0-33); Albumin Level 3.4 g/dL (3.5-5.2); Alkaline Phosphatase 141 U/L (35-105); Anion Gap 17.9 (5-19); Aspartate Amino Transferase 8 U/L (0-32); Blood Urea Nitrogen 34 mg/dL (6-20); Calcium 8.7 mg/dL (8.5-10.5); Carbon Dioxide 18 mmol/L (22-29); Chloride 111 mmol/L (98-107); Creatinine Clr Calc Pharmacy 43.1013; Globulin 3.1 g/dL (1.3-4.6); Glucose 121 mg/dL (65-115); Osmolality Calculated 305 mOsm/kg (285-295); Potassium 3.9 mmol/L (3.5-5.1); Sodium 143 mmol/L (136-145); Total Protein 6.5 g/dL (6.6-8.7)
--- NOTE | 2025-01-20 17:14 | P.PN_ITS ---
Subjective 2 Subjective: Patient was seen this morning, currently alert oriented x 3, following all commands, denies any fevers, chills does report lightheadedness, denies passing out, while here in the hospital blood pressure remained soft, Vitals/I&O/Wt Last Vital Signs Temp 97.5 F L 01/20/25 15:48 Pulse 73 01/20/25 15:48 Resp 16 01/20/25 15:48 BP 99/67 01/20/25 15:48 Pulse Ox 97 01/20/25 15:48 O2 Del Method Room Air 01/20/25 15:48 01/20/25 01/20/25 01/20/25 06:59 14:59 22:59 Intake Total 2240 / 2240 Output Total 50 / 50 Balance 2190 / 2190 Weight last 48 hrs Weight 95.254 kg Physical Exam 2 Const: COMMON NORMALS: no acute distress and patient oriented x3 Resp: COMMON NORMALS: normal respiratory effort, No retractions, No use of accessory muscles and clear to auscultation bilaterally AUSCULTATION: clear to auscultation bilaterally Cardio: COMMON NORMALS: regular rate, regular rhythm, S1 normal heart sound present and S2 normal heart sound present RATE: regular rate RHYTHM: r egular rhythm HEART SOUNDS: S1 normal heart sound present and S2 normal heart sound present GI: COMMON NORMALS: Normal to inspection, nondistended, normoactive bowel sounds present and non-tender Extremity: COMMON NORMALS: no pedal edema Neuro: COMMON NORMALS: patient oriented x3 Psych: COMMON NORMALS: mental status grossly normal Data 01/19/25 22:07 01/20/25 10:56 A&P Assessment and plan 1. FAWN (acute kidney injury): - Likely secondary to dehydration -Has increased anion gap metabolic acidosis -CT scan abdomen pelvis no obstruction - Continue IV fluids 2. Syncope and collapse: Potentially secondary to orthostatic hypotension, hypovolemia, polypharmacy No facial droop, no slurring of her words, no focal weakness, no chest pain, Plan Cardiac echo CONCLUSIONS LV systolic function is normal with EF of 55 to 60%. Grade 1 diastolic dysfunction. Trace mitral regurgitation. Carotid artery ultrasound CONCLUSIONS Bilateral ICA stenosis less than 50%. Mild diffuse carotid atherosclerotic disease. Head CT No acute findings Plan -IV fluids - Telemetry monitoring - Orthostatic vitals - Hold metoprolol - Hold blood pressure medications 3. Dehydration: Likely from GI loss and extreme heat 4. Essential hypertension: Currently will hold lisinopril given acute kidney injury. 5. Chronic anticoagulation: 6. Hypotension: Likely secondary to hypovolemia, dehydration, IV fluids Plan: DVT prophylaxis: Currently on Xarelto which we will continue Full code Requesting nicotine patch due to a history of chronic smoking, this has been ordered PDMP PDMP Reviewed: Not Reviewed Attestations 2 Medical Necessity Statement*: Patient requires hospitalization for hypotension, dehydration, acute kidney injury Diagnoses FAWN (acute kidney injury) N17.9 Syncope and collapse R55 Dehydration E86.0 Essential hypertension I10 Chronic anticoagulation Z79.01 Hypotension I95.9
[2025-01-20 19:07] LABS: Lactic Sepsis W/Reflex 2.0 mmol/L (0.5-2.2)
[2025-01-20] MEDS: ondansetron 2 mg/ML SDV 2 mL 4 MG IVP (20:47)
[2025-01-21] VITALS (9 sets, daily range): BP systolic 111–159; BP diastolic 42–88; PULSE 45–83; RESP 15–18; TEMP 36.4–36.9; O2SAT 95–98
[2025-01-21 05:53] LABS: Hematocrit 36.4 % (36-47); Hemoglobin 11.30 g/dL (11.27-16.99); Mean Corpuscular HGB Conc 31.0 g/dL (30-55); Mean Corpuscular Hemoglobin 25.9 pg (27-33); Mean Corpuscular Volume 83.5 fl (85-98); Nucleated Red Blood Cells % 0 %; Platelet Count 289 10^3/cmm (157-399); Red Blood Count 4.36 10^6/uL (3.85-5.65); White Blood Count 5.81 10^3/uL (3.29-11.43)
[2025-01-21 06:01] LABS: Estmated Average Glucose 117; Hemoglobin A1C 5.7 % (4.0-6.0)
[2025-01-21 06:19] LABS: Alanine Aminotransferase < 5 U/L (0-33); Albumin Level 3.4 g/dL (3.5-5.2); Alkaline Phosphatase 132 U/L (35-105); Anion Gap 15.4 (5-19); Aspartate Amino Transferase 10 U/L (0-32); Blood Urea Nitrogen 22 mg/dL (6-20); Calcium 8.8 mg/dL (8.5-10.5); Carbon Dioxide 22 mmol/L (22-29); Chloride 111 mmol/L (98-107); Creatinine Clr Calc Pharmacy 68.9621; Globulin 2.8 g/dL (1.3-4.6); Glucose 77 mg/dL (65-115); Magnesium 1.8 mg/dL (1.7-2.3); Osmolality Calculated 300 mOsm/kg (285-295); Potassium 4.4 mmol/L (3.5-5.1); Sodium 144 mmol/L (136-145); Thyroid Stimulating Hormone 1.75 uIU/mL (0.27-4.20); Total Protein 6.2 g/dL (6.6-8.7)
--- NOTE | 2025-01-21 10:05 | PC.SOCIAL ---
IMM Update pg 2 of IMM updated and reviewed w/ patient Copy provided and copy dated, initialed and placed in chart.
--- NOTE | 2025-01-21 11:42 | ECG_ITS ---
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 Measurements Intervals [place] Rate: 64 P: 48 SC: 146 QRS: 10 QRSD: 99 T: 28 QT: 376 QTc: 389 Interpretive Statements SINUS RHYTHM LOW QRS VOLTAGE IN PRECORDIAL LEADS [QRS DEFLECTION < 1.0 mV IN CHEST LEADS] Compared to ECG 01/19/2025 21:38:11 No significant changes Electronically Signed On 01-22-2025 09:11:33 CDT by Puma Butterfield M.D. [email or web address]
--- NOTE | 2025-01-21 11:43 | P.DS_ITS ---
Discharge Providers Date of Admission: 01/20/25 05:29 Date of Discharge: January 21, 2025 Attending Provider at Admission: Jenni Manning MD Attending Provider at Discharge: Andrea Charles MD Diagnoses at Discharge Discharge Diagnosis 1. FAWN (acute kidney injury): 2. Syncope and collapse: 3. Dehydration: 4. Essential hypertension: 5. Chronic anticoagulation: 6. Hypotension: Reason for Visit Reason for Visit: SYNCOPE, WEAKNESS Hospital Course Hospital Course This is a 54-year-old female with a past medical history of type 2 diabetes mellitus, history of PE, who presents [facility] for syncopal episode, FAWN, dehydration Acute kidney injury, likely secondary dehydration, secondary to heat exhaustion, received IV fluids, overall clinically improved - Patient currently lives in a home without air conditioning - Discussed cool sites that she could visit during the day, hydrating at least 3 L a day - If she has any lightheadedness or dizziness to go to the emergency room For her syncope - No recurrent episodes during her hospitalization - Cardiac echo no acute findings - Head CT no acute findings - Carotid artery ultrasound no acute findings - She did have sinus bradycardia, likely combination of dehydration, metoprolol 200 mg daily - Her metoprolol has been discontinued for now - EKG no bundle-branch block or AV block or sinus pauses - Discharged with instructions to drink a lot of electrolyte balance fluids - If any recurrent lightheadedness or dizziness to go to the emergency room - Follow-up with primary care provider Physical Exam Const: COMMON NORMALS: no acute distress and patient oriented x3 Resp: COMMON NORMALS: normal respiratory effort, No retractions, No use of accessory muscles and clear to auscultation bilaterally AUSCULTATION: clear to auscultation bilaterally Cardio: COMMON NORMALS: regular rate, regular rhythm, S1 normal heart sound pr esent and S2 normal heart sound present RATE: regular rate RHYTHM: regular rhythm HEART SOUNDS: S1 normal heart sound present and S2 normal heart sound present GI: COMMON NORMALS: Normal to inspection, nondistended, normoactive bowel sounds present and non-tender Extremity: COMMON NORMALS: no pedal edema Neuro: COMMON NORMALS: patient oriented x3 Psych: COMMON NORMALS: mental status grossly normal Discharge Data Studies Completed and Pending Completed Studies During Hospitalization Category Date Time Status CT abdomen renal stone [CT kidney stone [id number]] Routine Cat Scan 01/20/25 01:[address] head wo con* [id number] Stat Cat Scan 01/19/25 21:58 Completed CV carotid duplex BI* [id number] Routine Ultrasound 01/20/25 01:24 Completed CV. echo complete* [id number] Routine Ultrasound 01/20/25 01:24 Completed Radiology Impressions Head CT 01/19/25 21:58 IMPRESSION: No acute intracranial abnormality. Abdomen/Pelvis CT 01/20/25 01:24 IMPRESSION: No hydronephrosis. No calcified renal or ureteral stones. Laboratory Results WBC 5.81 10^3/uL (3.29-11.43) 01/21/25 05:09 RBC 4.36 10^6/uL (3.85-5.65) 01/21/25 05:09 Hgb 11.30 g/dL (11.27-16.99) 01/21/25 05:09 Hct 36.4 % (36-47) 01/21/25 05:09 MCV 83.5 fl (85-98) L 01/21/25 05:09 MCH 25.9 pg (27-33) L 01/21/25 05:09 MCHC 31.0 g/dL (30-55) 01/21/25 05:09 RDW 18.7 % (12.1-15.1) H 01/21/25 05:09 Plt Count 289 10^3/cmm (157-399) 01/21/25 05:09 MPV 10.9 fL (7.4-10.4) H 01/21/25 05:09 Neut % (Auto) 55.7 % 01/21/25 05:09 Lymph % (Auto) 33.2 % 01/21/25 05:09 [place] % (Auto) 6.9 % 01/21/25 05:09 Eos % (Auto) 3.4 % 01/21/25 05:09 Baso % (Auto) 0.5 % 01/21/25 05:09 Neut # (Auto) 3.23 10^3/uL (1.8-7.7) 01/21/25 05:09 Lymph # (Auto) 1.9 10^3/uL (0.8-4.8) 01/21/25 05:09 [place] # (Auto) 0.4 10^3/uL (0.2-0.9) 01/21/25 05:09 Eos # (Auto) 0.2 10^3/uL (0.0-0.8) 01/21/25 05:09 Baso # (Auto) 0.0 10^3/uL (0.0-0.1) 01/21/25 05:09 Nucleated RBC % (auto) 0 % 01/21/25 05:09 Nucleated RBCs # 0.0 /100WBC 01/21/25 05:09 Sodium 144 mmol/L (136-145) 01/21/25 05:09 Potassium 4.4 mmol/L (3.5-5.1) 01/21/25 05:09 Chloride 111 mmol/L (98-107) H 01/21/25 05:09 Carbon Dioxide 22 mmol/L (22-29) 01/21/25 05:09 Anion Gap 15.4 (5-19) 01/21/25 05:09 BUN 22 mg/dL (6-20) H 01/21/25 05:09 Creatinine 1.0 mg/dL (0.5-0.9) H 01/21/25 05:09 GFR Calculation 57.4 mL/min (90-130) L 01/21/25 05:09 Glucose 77 mg/dL (65-115) 01/21/25 05:09 POC Glucose 152 mg/dL (70-110) H 01/21/25 10:41 Estimat Average Glucose 117 01/21/25 05:09 Hemoglobin A1c 5.7 % (4.0-6.0) 01/21/25 05:09 Calculated Osmolality 300 mOsm/kg (285-295) H 01/21/25 05:09 Lactic Acid 2.0 mmol/L (0.5-2.2) 01/20/25 18:40 Calcium 8.8 mg/dL (8.5-10.5) 01/21/25 05:09 Magnesium 1.8 mg/dL (1.7-2.3) 01/21/25 05:09 Total Bilirubin 0.3 mg/dL (0.15-1.2) 01/21/25 05:09 AST 10 U/L (0-32) 01/21/25 05:09 ALT < 5 U/L (0-33) 01/21/25 05:09 Alkaline Phosphatase 132 U/L (35-105) H 01/21/25 05:09 Creatine Kinase 20 U/L (26-192) L 01/19/25 22:07 Troponin T 5th Gen ng/L 9 ng/L (0-10) 01/19/25 22:07 Total Protein 6.2 g/dL (6.6-8.7) L 01/21/25 05:09 Albumin 3.4 g/dL (3.5-5.2) L 01/21/25 05:09 Globulin 2.8 g/dL (1.3-4.6) 01/21/25 05:09 TSH 1.75 uIU/mL (0.27-4.20) 01/21/25 05:09 Urine Color Yellow (Yellow) 01/19/25 23: Urine Appearance Cloudy (CLEAR) A 01/19/25 23: Urine pH 5.0 (5-7) 01/19/25 23: Ur Specific [place] 1.017 (1.005-1.030) 01/19/25 23: Urine Protein 1+ (Negative) A 01/19/25 23: Urine Glucose (UA) Negative (Normal) 01/19/25 23: Urine Ketones Trace (Negative) 01/19/25 23: Urine Blood Negative (Negative) 01/19/25: Urine Nitrate Negative (Negative) 01/19/25 23: Urine Bilirubin Negative (Negative) 01/19/25 23: Urine Urobilinogen 1.0 mg/dL (Negative) 01/19/25 23: Ur Leukocyte Esterase 2+ (Negative) A 01/19/25: Urine RBC 6-10 /hpf (0-2) 01/19/25 23: Urine WBC 51-100 /hpf (0-5) H 01/19/25 23:27 Ur Squamous Epith Cells 21-50 /hpf (0-5) H 01/19/25 23: Amorphous Sediment Not Reportable 01/19/25 23: Urine Bacteria 1+ /hpf (NONE) H 01/19/25 23: Hyaline Casts 176.66 /lpf 01/19/25 23: Hepatitis A IgM Ab Non-reactive (Nonreactive) 01/19/25 22:07 Hep Bs Antigen Non-reactive (Nonreactive) 01/19/25 22:07 Hep Bs Antibody < 3.5 (11.5-1000) L 01/19/25 22:07 Hep B Core Total Ab Non-reactive (Nonreactive) 01/19/25 22:07 Hepatitis C Antibody Non-reactive (Nonreactive) 01/19/25 22:07 Vitals Last Vital Signs Temp 97.6 F 01/21/25 07:16 Pulse 60 01/21/25 07:16 Resp 15 01/21/25 07:16 BP 111/42 01/21/25 07:16 Pulse Ox 98 01/21/25 07:16 O2 Del Method Room Air 01/21/25 07:16 Discharge Plan Discharge Patient Disposition: Home Condition: Stable Prescriptions: Continued Zyrtec 10 mg capsule 10 mg PO DAILY PRN (Reason: allergies) fluticasone propionate [Flonase Allergy Relief] 50 mcg/actuation spray,suspension 1 spray intranasal DAILY PRN (Reason: allergies) Rx Instructions: administer into each nostril metformin 500 mg tablet extended release 24 hr 1,000 mg PO BID Qty: 360 0RF pregabalin 150 mg capsule 150 mg PO BID 30 Days Qty: 60 2RF duloxetine 60 mg capsule,delayed release(DR/EC) 60 mg PO DAILY 30 Days Qty: 30 2RF Rx Instructions: Can have 90 day supply if insurance is agreeable tizanidine 2 mg tablet 2 mg PO Q8H PRN (Reason: muscle spasms) trazodone 100 mg tablet 100 mg PO BEDTIME mupirocin 2 % ointment 1 applic topical BID PRN (Reason: Skin Irritation) albuterol sulfate 90 mcg/actuation HFA aerosol inhaler 2 puff inhalation QID PRN (Reason: Shortness Of Breath) Xarelto 10 mg tablet 10 mg PO QPM Held lisinopril 40 mg tablet 40 mg PO DAILY Hold Instructions: Resume on 01/28/25. hold until you see dj Discontinued metoprolol succinate 200 mg tablet extended release 24 hr 200 mg PO DAILY Qty: 30 2RF Referrals: JONY Diaz, FISHING TOOL OPERATOR [Nurse Practitioner, Family Practice] Referral Note: We have notified your physician's clinic of the need for a follow-up appointment to be scheduled. If you have not heard from them within the next 2 business days, please call them directly. Discharge Diet: Cardiac Discharge Activity: Resume usual activity Patient Instructions: Opioid Safety, Patient Portal & Elsie Instructions Activity Restrictions/Additional Instructions: - Hold metoprolol until you see primary care - If you have lightheadedness or dizziness go to the emergency room - Please hydrate well drink at least 3 L of fluid a day - See primary care provider next week - Resume lisinopril next week when you see Dj gross Discharge Attestations Time Spent in Discharge Care*: greater than 30 min Quality Metrics Clinical Quality Measures [ No reported AMI, CVA or VTE this stay] Coding Level of Care Code 81661 Total time (in minutes) for Discharge: 45 Diagnoses FAWN (acute kidney injury) N17.9 Syncope and collapse R55 Dehydration E86.0 Essential hypertension I10 Chronic anticoagulation Z79.01 Hypotension I95.9
--- NOTE | 2025-01-21 14:55 | PC.NURSE ---
[facility] Patient is A&Ox3. Respiration even and non=labored on room air. Patient verbalized understanding of discharge instructions including the need to hold her blood pressure medications until following up with her primary doctor. Patient was wheel chaired to her private car.
== END 2025-01-21 14:00 | disposition home or self-care (01) | DRG 684 ==
LOC: ER 22:13 → ER IP 23:35 → MEDSURG 01-20 08:25
PROVIDERS: Admitting Provider Student in an Organized Health Care Education/Training Program; Emergency Provider Family Medicine; Visit Provider Family Medicine
DX: N17.9 Acute kidney failure, unspecified (principal); E86.0 Dehydration; I10 Essential (primary) hypertension; E11.40 Type 2 diabetes mellitus with diabetic neuropathy, unspecified; E11.51 Type 2 diabetes mellitus with diabetic peripheral angiopathy without gangrene; T67.5XXA Heat exhaustion, unspecified, initial encounter; X32.XXXA Exposure to sunlight, initial encounter; K21.9 Gastro-esophageal reflux disease without esophagitis; I95.1 Orthostatic hypotension; F10.21 Alcohol dependence, in remission; F17.210 Nicotine dependence, cigarettes, uncomplicated; Z79.84 Long term (current) use of oral hypoglycemic drugs; Z79.891 Long term (current) use of opiate analgesic; Z79.01 Long term (current) use of anticoagulants; Z86.711 Personal history of pulmonary embolism; Z87.440 Personal history of urinary (tract) infections; Z86.14 Personal history of Methicillin resistant Staphylococcus aureus infection; Z89.422 Acquired absence of other left toe(s); Z89.421 Acquired absence of other right toe(s)
CPT/HCPCS: 36415; 36416; 70450; 74176; 80053; 81001; 82550; 82962; 83036; 83605; 83735; 84443; 84484; 85025; 86705; 86706; 86709; 86803; 87340; 90471; 90715; 93005; 93306; 93880; 96372; 96374; 99285; G0378; J1815; J2405; J7030; J9999

== ENCOUNTER 2025-02-14 15:47 | Observation (INO) | payer MEDICARE, SELFPAY ==
[2025-02-14] VITALS (9 sets, daily range): BP systolic 107–141; BP diastolic 76–88; PULSE 73–101; RESP 16–18; TEMP 36.5–36.6; O2SAT 93–98; BMI 34.5; BMI 34.9
--- OUTSIDE RECORDS SUMMARY | 2025-02-14 15:58 | XMS_ITS | Clinical Summary ---
Author Organization [facility] iew Address [address] [phone] Phone Care Team Providers Care Dental Assistant Medical Assistant Name Role Phone Unavailable Primary Care Provider Unavailabl e Encounters Date Type Department Care Team Description 02/04/2025 External Device Data [facility] ABSTRACTION Provider, Abstract 02/03/2025 External Device Data [facility] ABSTRACTION Provider, Abstract 02/03/2025 External Device Data [facility] ABSTRACTION Provider, Abstract 01/19/2025 - 01/19/2025 11:59 PM CDT Hospital Encounter [facility] [place] [address] [phone] Ambulance[facility] Discharge Disposition: Short term general hospital from Last 3 Months Social History Tobacco Use Types Packs/Day Years Used Date Smoking Tobacco: Never Assessed Comments Unknown Sex and Gender Information Value Date Recorded Sex Assigned at Not on file Legal Sex Female 2:47 PM C CONSULTANT Gender Identity Not on file Sexual Orientation Not on file Plan of Treatment Health Maintenance Due Date Last Done Comments DTAP/TDAP/TD VACCINES (1 - Tdap) 10/07/1987 HEPATITIS B VACCINES (1 of 3 - 19+ 3-dose series) 10/07/1987 HPV/Cotest (21-29) 1989 CERVICAL CANCER SCREENING 1998 HPV/Cotest (30-65) 1998 PAP SMEAR 1998 BREAST CANCER SCREENING 2008 COLORECTAL SCREENING 2013 Colorectal Cancer Screening 2013 FIT-DNA Q 3 years 2013 FIT/FOBT Q 1 year 2013 Flex Sig/CT Colonography Q 5 years 2013 ZOSTER VACCINE (1 of 2) 2018 COVID-19 Vaccine ( season) 03/02/202404/2021, 10/11/2020 INFLUENZA VACCINE (#1) 2025 04/27/2022 Insurance [facility] MEDICAID
--- NOTE | 2025-02-14 16:15 | ECG_ITS ---
[employer] Test Date: 2025-02-14 Pat Name: Britt Avalos Department: Room: Gender: Female Distribution Driver: : 1970 Requested By: Eliecer Hernandez Order Number: [id number] Jerez MD: Dc Barnes M.D. Measurements Intervals Alexander Rate: 80 P: 48 PA: 126 QRS: 36 QRSD: 84 T: 46 QT: 349 QTc: 403 Interpretive Statements SINUS RHYTHM LOW QRS VOLTAGE IN PRECORDIAL LEADS [QRS DEFLECTION < 1.0 mV IN CHEST LEADS] Compared to ECG 01/21/2025 12:57:55 No significant changes Electronically Signed On 02-15-2025 17:51:43 CDT by Dc Barnes M.D. [email or web address]
--- NOTE | 2025-02-14 16:16 | CTR_ITS ---
PROCEDURE INFORMATION: Exam: CT Head Without Contrast Exam date and time: 02/14/2025 4:55 PM Age: 54 years old Clinical indication: Pain; Altered mental status/memory loss and dizziness; Confusion or disorientation; Headache not specified; Additional info: Confusion, DUVAL, dizzy, HX of stroke TECHNIQUE: Imaging protocol: Computed tomography of the head without contrast. Radiation optimization: All CT scans at this facility use at least one of these dose optimization techniques: automated exposure control; mA and/or kV adjustment per patient size (includes targeted exams where dose is matched to clinical indication); or iterative reconstruction. COMPARISON: CT head wo con* [id number] 01/19/2025 10:22 PM RADIATION DOSE METRICS: Total DLP (mGy-cm): 1077.18 FINDINGS: Brain: Normal. No hemorrhage. Unremarkable white matter. No mass effect. Cerebral ventricles: No ventriculomegaly. Paranasal sinuses: Visualized sinuses are unremarkable. No fluid levels. Mastoid air cells: Visualized mastoid air cells are well aerated. Bones: Unremarkable. No acute fracture. Soft tissues: Unremarkable. CT/CT head wo con* [id number] IMPRESSION: No acute intracranial abnormality.
[2025-02-14 16:24] LABS: Hematocrit 44.7 % (36-47); Hemoglobin 14.50 g/dL (11.27-16.99); Mean Corpuscular HGB Conc 32.4 g/dL (30-55); Mean Corpuscular Hemoglobin 26.8 pg (27-33); Mean Corpuscular Volume 82.6 fl (85-98); Nucleated Red Blood Cells % 0 %; Platelet Count 631 10^3/cmm (157-399); Red Blood Count 5.41 10^6/uL (3.85-5.65); White Blood Count 12.80 10^3/uL (3.29-11.43)
[2025-02-14] MEDS: pantoprazole 40 mg SDV 80 MG IVP (16:28)
--- NOTE | 2025-02-14 16:30 | ED_ITS ---
Documented by User: MICKIE Doe 02/14/25 19:10 HPI - Abdominal Pain 2 General: Chief Complaint: Abdominal Pain Stated Complaint: abd pain Time Seen by Provider: 02/14/25 15:50 Source: patient and EMS Mode of arrival: EMS Limitations: no limitations History of Present Illness: Patient is a 54-year-old female who presents the emergency department by EMS with complaints of nausea and vomiting for the past 2 days. Also is having acute on chronic central abdominal pain that she attributes to ulcer pain. She states she was diagnosed with these ulcers in [facility] 3 years ago with GI, has only been taking maintenance Protonix since and has not followed up with them. Does not report any specific inciting event to her symptoms, such as no concerning exotic food consumption or new medications or changes in medication. 8 mg Zofran total given prehospital as well as 500 mm bolus Plasma- Lyte, patient stated she does feel better she is still just having some central abdominal pain. No urinary symptoms or diarrhea. States that her appetite is diminished and every time she attempts to eat or drink something she cannot keep it down. Patient reportedly is homeless, but has intermittently been staying in a trailer. Patient also has concern at this time of left-sided focal headache, as well as having confusion and being dizzy. She has a history of stroke and states that she is concerned of this, though the symptoms have been going on for a couple of days. There is no focal neurological deficit appreciated at my time of examination, she denies history of vertigo. She states that the symptoms seem to have started after her onset of nausea and vomiting. Reports 6 episodes of vomiting today, no reported hematemesis. This patient also has a history of diabetes and GERD, denies history of pancreatitis or gastroparesis. MD elicited complaint: abdominal pain Pertinent past history: other (Diabetes, GERD) Onset (ago): day(s) Pain Consistency: constant Location: Periumbilical Severity: moderate Quality: cramping Radiation: none Exacerbating factors: vomiting Relieving factors: nothing Associated Symptoms: Reports nausea and vomiting; Denies bloating, change in stool character, chills, constipation, diarrhea, dysuria, fever(s) and hematochezia Related Data Home Medications ?Medication ?Instructions ?Recorded ?Confirmed cetirizine 10 mg capsule (Zyrtec) 10 mg PO DAILY PRN a llergies 04/09/24 01/20/25 fluticasone propionate 50 1 spray intranasal DAILY PRN 04/09/24 01/20/25 mcg/actuation nasal allergies spray,suspension (Flonase Allergy Relief) albuterol sulfate 90 mcg/actuation 2 puff inhalation Q ID PRN 01/20/25 01/20/25 aerosol inhaler Shortness Of Breath lisinopril 40 mg tablet 40 mg PO DAILY 01/20/2512/31 Held on 01/21/25. Instructions: Resume on 01/28/25. hold until you see dj mupirocin 2 % topical ointment 1 applic topical BID MN N Skin 01/20/25 01/20/25 Irritation rivaroxaban 10 mg tablet (Xarelto) 10 mg PO QPM 01/20/25 tizanidine 2 mg tablet 2 mg PO Q8H PRN muscle spasm s 01/20/25 01/20/25 trazodone 100 mg tablet 100 mg PO BEDTIME 01/20/25 0 01/20/25 Previous Rx's ?Medication ?Instructions ?Recorded metformin 500 mg tablet,extended 1,000 mg (2 x 500 mg) PO BID #360 09/02/24 release 24 hr tabs pregabalin 150 mg capsule 150 mg PO BID 30 days #60 ca ps 09/02/24 duloxetine 60 mg capsule,delayed 60 mg PO DAILY 30 day s #30 caps 10/13/24 release Allergies Allergy/AdvReac Type Severity Reaction Status Date / Time Penicillins Allergy Intermediate ADR-Itching Verified 08/21/24 14:04 Review of Systems 2 General: Reports: 10 or more systems reviewed and unremarkable except in HPI and below Const: Reports: change in appetite; Denies: fever(s), chills, change in weight or diaphoresis ENMT: Denies: throat pain or hoarseness Card: Denies: chest pain, palpitations or lightheadedness Resp: Denies: dyspnea, productive cough or wheezing GI: Reports: abdominal pain, nausea and vomiting; Denies: diarrhea, constipation, bloating, change in stool character or hematochezia : Denies: flank pain, difficulty voiding, dysuria, urinary frequency or urinary urgency Musc: Denies: neck pain or back pain Skin/Breast: Denies: rash or new lesions Neuro: Reports: headache(s), dizziness and confusion PFSH ED 2 PFSH: Medical History Cellulitis of foot Cellulitis of right foot Cellulitis Allergic contact dermatitis of scalp Urinary tract infection Hx of mitral valve disorder History of MRSA infection Nasal sore Seborrheic dermatitis Iron deficiency anemia Neuropathy of both feet Diabetic foot Amputated toe of right foot Amputated toe of left foot Influenza vaccine needed Chronic obstructive pulmonary disease Muscle spasm Breast cancer screening by mammogram Vitamin D deficiency Chronic anticoagulation Diabetic neuropathy, painful Insomnia Anxiety and depression Gastroesophageal reflux disease Hx pulmonary embolism Essential hypertension 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 Social History Smoking and tobacco/nicotine status: current every day tobacco/nicotine user cigarettes Packs smoked per day: 1 Years cigarettes smoked: 35 Quit status (tobacco/nicotine): not considering quitting Second hand smoke exposure: No Alcohol intake: former Year of sobriety/quit date alcohol: 3 Former alcohol use details: vodka and tequila Substance/Drug Use: current Substance/Drug use frequency: daily Adopted: No Caregiver/support person: Yes (lives with friend) Lives independently: No Household members: significant other Housing: Apartment Marital status: Life Partner Physical Exam 2 Const: COMMON NORMALS: patient oriented x3, no limitations and alert G ENERAL APPEARANCE: cooperative and disheveled NUTRITIONAL APPEARANCE: obese ORIENTATION/CONSCIOUSNESS: Yes awake, Yes oriented to person, Yes oriented to place and Yes oriented to time OTHER: Dry heaving at bedside HENMT: OTHER: Dry oral mucosa Eye: COMMON NORMALS: Equal, round and reactive pupils present, EOMs intact bilaterally, conjunctivae normal and normal visual singh by confrontation C ONJUNCTIVA: Yes conjunctivae normal PUPIL: Yes Equal, round and reactive pupils present Neck/C-Spine: COMMON NORMALS: full ROM, supple, no meningeal signs and no JVD Resp: COMMON NORMALS: normal respiratory effort, No retractions, No use of accessory muscles and clear to auscultation bilaterally AUSCULTATION: clear to auscultation bilaterally, no crackles, no rales, no rhonchi and no wheezes Cardio: COMMON NORMALS: no JVD, regular rate, regular rhythm, S1 normal heart sound present, S2 normal heart sound present, No gallops present (Cardio), No clicks present (Cardio), No murmurs present (Cardio), No rub (Cardio) and Peripheral pulses 2+ throughout RATE: regular rate RHYTHM: regular rhythm HEART SOUNDS: S1 normal heart sound present and S2 normal heart sound present PERIPHERAL PULSES: Peripheral pulses 2+ throughout GI: COMMON NORMALS: Soft to palpation, non-tender, No hepatosplenomegaly present and no masses INSPECTION: Yes central obesity AUSCULTATION: Yes normoactive bowel sounds PALPATION: Yes Soft to palpation, No Guarding due to palpation present (GI), No Rigid due to palpation and Yes No hepatosplenomegaly present RECTAL EXAM: deferred : COMMON NORMALS: Yes no CVA tenderness BLADDER/KIDNEY EXAM: Yes no CVA tenderness Back/Pelvis: COMMON NORMALS: no CVA tenderness Extremity: COMMON NORMALS: normal to inspection and full ROM Neuro: COMMON NORMALS: patient oriented x3, CN's II-XII intact bilaterally, moves all extremities, no focal motor deficits and no sensory deficits noted SENSORIUM/ORIENTATION: Yes alert, Yes oriented to person, Yes oriented to place and Yes oriented to time MENINGEAL SIGNS: Yes no meningeal signs Psych: COMMON NORMALS: mental status grossly normal, cooperative and speech normal SPEECH: Yes normal speech Skin: NARRATIVE SKIN EXAM: Slight decrease skin turgor Course 2 Vital Signs: Vital signs: Vital Signs Temperature 97.7 F 02/14/25 15:47 Pulse Rate 101 H 02/14/25 15:47 Respiratory Rate 18 02/14/25 15:47 Blood Pressure 118/86 02/14/25 17:10 Pulse Oximetry 93 02/14/25 18:06 Oxygen Delivery Me thod Room Air 02/14/25 18:06 MDM - Abdominal Pain Medical Decision Making Patient presented with nausea and vomiting for the past few days, associated with some chronic abdominal pain which she attributes to history of ulcers. She takes Protonix. No vomiting while here in the emergency department, she was treated prehospital with Zofran and Plasma-Lyte. Recently was here in the hospital for dehydration and acute kidney injury, as the patient is homeless and reportedly lives in a mud hut. Slightly decreased skin turgor and dry oral mucosa on exam to indicate dehydration. Mild leukocytosis noted, there is elevation in her creatinine and BUN compared to baseline. Signs of a UTI with her urinalysis. EKG reviewed showing no acute ST segment changes, and a head CT was unremarkable. Seems that she is dehydrated likely resulting in the kidney injury, acute on chronic, and UTI that could explain her increased confusion and dizziness which is likely multifactorial. Do not suspect any acute neurological process, I spoke to Dr. Charles, hospitalist, who will see the patient at this time. CT abdomen without contrast pending. Lab Data 02/14/25 14:46 02/14/25 14:46 Labs/Radiology: Radiology Impressions Head CT 02/14/25 16:16 IMPRESSION: No acute intracranial abnormality. Abdomen/Pelvis CT 02/14/25 18:24 IMPRESSION: No acute findings. Laboratory Results WBC 12.80 10^3/uL (3.29-11.43) H 02/14/25 14:46 RBC 5.41 10^6/uL (3.85-5.65) 02/14/25 14:46 Hgb 14.50 g/dL (11.27-16.99) 02/14/25 14:46 Hct 44.7 % (36-47) 02/14/25 14:46 MCV 82.6 fl (85-98) L 02/14/25 14:46 MCH 26.8 pg (27-33) L 02/14/25 14:46 MCHC 32.4 g/dL (30-55) 02/14/25 14:46 RDW 18.6 % (12.1-15.1) H 02/14/25 14:46 Plt Count 631 10^3/cmm (157-399) H 02/14/25 14:46 MPV 10.3 fL (7.4-10.4) 02/14/25 14:46 Neut % (Auto) 62.3 % 02/14/25 14:46 Lymph % (Auto) 29.8 % 02/14/25 14:46 Steele % (Auto) 6.3 % 02/14/25 14:46 Eos % (Auto) 0.9 % 02/14/25 14:46 Baso % (Auto) 0.4 % 02/14/25 14:46 Neut # (Auto) 7.98 10^3/uL (1.8-7.7) H 02/14/25 14:46 Lymph # (Auto) 3.8 10^3/uL (0.8-4.8) 02/14/25 14:46 Steele # (Auto) 0.8 10^3/uL (0.2-0.9) 02/14/25 14:46 Eos # (Auto) 0.1 10^3/uL (0.0-0.8) 02/14/25 14:46 Baso # (Auto) 0.1 10^3/uL (0.0-0.1) 02/14/25 14:46 Nucleated RBC % (auto) 0 % 02/14/25 14:46 Nucleated RBCs # 0.0 /100WBC 02/14/25 14:46 Specimen Type Arterial 02/14/25 16:20 Sample Site Radial, right 02/14/25 16:20 ABG pH 7.43 (7.35-7.45) 02/14/25 16:20 ABG pCO2 32.1 mmHg (35-45) L 02/14/25 16:20 ABG pO2 109.0 mmHg (80.0-100.0) H 02/14/25 16:20 ABG PO2/FiO2 Ratio 519 02/14/25 16:20 ABG HCO3 21.4 mmol/L (22-26) L 02/14/25 16:20 ABG O2 Saturation 99.1 02/14/25 16:20 ABG Base Excess -2.0 mmol/L (-2.0-2.0) 02/14/25 16:20 Godfrey Test Pos 02/14/25 16:20 A-a O2 Gradient Not Reportable 02/14/25 16:20 Hematocrit 41.8 % (37-47) 02/14/25 16:20 Hgb O2 Saturation 94.9 % (95-100) L 02/14/25 16:20 Carboxyhemoglobin 3.3 %THgb (0.4-20.1) 02/14/25 16:20 Methemoglobin 0.9 % (0.4-1.5) 02/14/25 16:20 Total Hemoglobin 13.6 g/dL (12-16) 02/14/25 16:20 Sodium 139.0 mmol/L (131-143) 02/14/25 16:20 Potassium 4.3 mmol/L (3.5-5.0) 02/14/25 16:20 Glucose 94.0 mg/dL (70-115) 02/14/25 16:20 Ionized Calcium 1.3 mmol/L (1.1-1.4) 02/14/25 16:20 O2 Delivery Device Room air 02/14/25 16:20 FiO2 21.0 % 02/14/25 16:20 Scheduling Administrator ID Walci 02/14/25 16:20 Sodium 136 mmol/L (136-145) 02/14/25 14:46 Potassium 3.9 mmol/L (3.5-5.1) 02/14/25 14:46 Chloride 97 mmol/L (98-107) L 02/14/25 14:46 Carbon Dioxide 21 mmol/L (22-29) L 02/14/25 14:46 Anion Gap 21.9 (5-19) H 02/14/25 14:46 BUN 30 mg/dL (6-20) H 02/14/25 14:46 Creatinine 2.2 mg/dL (0.5-0.9) H 02/14/25 14:46 GFR Calculation 23.1 mL/min (90-130) L 02/14/25 14:46 Glucose 71 mg/dL (65-115) 02/14/25 14:46 Calculated Osmolality 287 mOsm/kg (285-295) 02/14/25 14:46 Lactic Acid 0.9 mmol/L (0.5-2.2) 02/14/25 16:38 Calcium 10.1 mg/dL (8.5-10.5) 02/14/25 14:46 Magnesium 2.1 mg/dL (1.7-2.3) 02/14/25 14:46 Total Bilirubin 0.4 mg/dL (0.15-1.2) 02/14/25 14:46 AST 16 U/L (0-32) 02/14/25 14:46 ALT 10 U/L (0-33) 02/14/25 14:46 Alkaline Phosphatase 173 U/L (35-105) H 02/14/25 14:46 Creatine Kinase 50 U/L (26-192) 02/14/25 14:46 C-Reactive Protein 7.4 mg/L (0.0-4.9) H 02/14/25 14:46 Total Protein 8.8 g/dL (6.6-8.7) H 02/14/25 14:46 Albumin 4.7 g/dL (3.5-5.2) 02/14/25 14:46 Globulin 4.1 g/dL (1.3-4.6) 02/14/25 14:46 Lipase 53 U/L (13-60) 02/14/25 14:46 Procalcitonin 0.07 ng/mL (0-0.5) 02/14/25 14:46 Urine Color Yellow (Yellow) 02/14/25 17:17 Urine Appearance Cloudy (CLEAR) A 02/14/25 17:17 Urine pH 5.0 (5-7) 02/14/25 17:17 Ur Specific [place] 1.017 (1.005-1.030) 02/14/25 17:17 Urine Protein Trace (Negative) A 02/14/25 17:17 Urine Glucose (UA) Negative (Normal) 02/14/25 17:17 Urine Ketones Trace (Negative) 02/14/25 17:17 Urine Blood Negative (Negative) 02/14/25 17:17 Urine Nitrate Positive (Negative) A 02/14/25 17:17 Urine Bilirubin Negative (Negative) 02/14/25 17:17 Urine Urobilinogen 1.0 mg/dL (Negative) 02/14/25 17:17 Ur Leukocyte Esterase 1+ (Negative) A 02/14/25 17:17 Urine RBC None /hpf (0-2) 02/14/25 17:17 Urine WBC 15-25 /hpf (0-5) H 02/14/25 17:17 Ur Squamous Epith Cells 15-25 /hpf (0-5) H 02/14/25 17:17 Amorphous Sediment Not Reportable 02/14/25 17:17 Urine Bacteria 2+ /hpf (NONE) H 02/14/25 17:17 All radiology interpretation(s) finalized by discharge Discharge Plan Discharge Patient Disposition: Admitted As Inpatient Clinical Impression: Dehydration, FAWN (acute kidney injury) Nausea & vomiting Qualifiers: Vomiting type: unspecified Qualified Code(s): R11.2 - Nausea with vomiting, unspecified Condition: Stable Coding Level of Care Code ED Director Adult for Chg Fwd Documented by User: Tonny Daigle, DO 02/14/25 19:18 HPI - Abdominal Pain 2 General: Chief Complaint: Abdominal Pain Stated Complaint: abd pain Time Seen by Provider: 02/14/25 15:50 Related Data Home Medications ?Medication ?Instructions ?Recorded ?Confirmed cetirizine 10 mg capsule (Zyrtec) 10 mg PO DAILY PRN a llergies 04/09/24 01/20/25 fluticasone propionate 50 1 spray intranasal DAILY PRN 04/09/24 01/20/25 mcg/actuation nasal allergies spray,suspension (Flonase Allergy Relief) albuterol sulfate 90 mcg/actuation 2 puff inhalation Q ID PRN 01/20/25 01/20/25 aerosol inhaler Shortness Of Breath lisinopril 40 mg tablet 40 mg PO DAILY 01/20/2512/31 Held on 01/21/25. Instructions: Resume on 01/28/25. hold until you see dj mupirocin 2 % topical ointment 1 applic topical BID MN N Skin 01/20/25 01/20/25 Irritation rivaroxaban 10 mg tablet (Xarelto) 10 mg PO QPM 01/20/25 tizanidine 2 mg tablet 2 mg PO Q8H PRN muscle spasm s 01/20/25 01/20/25 trazodone 100 mg tablet 100 mg PO BEDTIME 01/20/25 0 01/20/25 Previous Rx's ?Medication ?Instructions ?Recorded metformin 500 mg tablet,extended 1,000 mg (2 x 500 mg) PO BID #360 09/02/24 release 24 hr tabs pregabalin 150 mg capsule 150 mg PO BID 30 days #60 ca ps 09/02/24 duloxetine 60 mg capsule,delayed 60 mg PO DAILY 30 day s #30 caps 10/13/24 release Allergies Allergy/AdvReac Type Severity Reaction Status Date / Time Penicillins Allergy Intermediate ADR-Itching Verified 08/21/24 14:04 PFSH ED 2 PFSH: Medical History Cellulitis of foot Cellulitis of right foot Cellulitis Allergic contact dermatitis of scalp Urinary tract infection Hx of mitral valve disorder History of MRSA infection Nasal sore Seborrheic dermatitis Iron deficiency anemia Neuropathy of both feet Diabetic foot Amputated toe of right foot Amputated toe of left foot Influenza vaccine needed Chronic obstructive pulmonary disease Muscle spasm Breast cancer screening by mammogram Vitamin D deficiency Chronic anticoagulation Diabetic neuropathy, painful Insomnia Anxiety and depression Gastroesophageal reflux disease Hx pulmonary embolism Essential hypertension 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 Social History Smoking and tobacco/nicotine status: current every day tobacco/nicotine user cigarettes Packs smoked per day: 1 Years cigarettes smoked: 35 Quit status (tobacco/nicotine): not considering quitting Second hand smoke exposure: No Alcohol intake: former Year of sobriety/quit date alcohol: 3 Former alcohol use details: vodka and tequila Substance/Drug Use: current Substance/Drug use frequency: daily Adopted: No Caregiver/support person: Yes (lives with friend) Lives independently: No Household members: significant other Housing: Apartment Marital status: Life Partner Course 2 Vital Signs: Vital signs: Vital Signs Temperature 97.7 F 02/14/25 15:47 Pulse Rate 101 H 02/14/25 15:47 Respiratory Rate 18 02/14/25 15:47 Blood Pressure 118/86 02/14/25 17:10 Pulse Oximetry 93 02/14/25 18:06 Oxygen Delivery Me thod Room Air 02/14/25 18:06 MDM - Abdominal Pain Medical Decision Making Patient presented with nausea and vomiting for the past few days, associated with some chronic abdominal pain which she attributes to history of ulcers. She takes Protonix. No vomiting while here in the emergency department, she was treated prehospital with Zofran and Plasma-Lyte. Recently was here in the hospital for dehydration and acute kidney injury, as the patient is homeless and reportedly lives in a mud hut. Slightly decreased skin turgor and dry oral mucosa on exam to indicate dehydration. Mild leukocytosis noted, there is elevation in her creatinine and BUN compared to baseline. Signs of a UTI with her urinalysis. EKG reviewed showing no acute ST segment changes, and a head CT was unremarkable. Seems that she is dehydrated likely resulting in the kidney injury, acute on chronic, and UTI that could explain her increased confusion and dizziness which is likely multifactorial. Do not suspect any acute neurological process, I spoke to Dr. Charles, hospitalist, who will see the patient at this time. CT abdomen without contrast pending. This patient was originally seen by Mr. Elian PA-C. I agree with his history, evaluation, and management. Lab Data 02/14/25 14:46 02/14/25 14:46 Labs/Radiology: Radiology Impressions Head CT 02/14/25 16:16 IMPRESSION: No acute intracranial abnormality. Abdomen/Pelvis CT 02/14/25 18:24 IMPRESSION: No acute findings. Laboratory Results WBC 12.80 10^3/uL (3.29-11.43) H 02/14/25 14:46 RBC 5.41 10^6/uL (3.85-5.65) 02/14/25 14:46 Hgb 14.50 g/dL (11.27-16.99) 02/14/25 14:46 Hct 44.7 % (36-47) 02/14/25 14:46 MCV 82.6 fl (85-98) L 02/14/25 14:46 MCH 26.8 pg (27-33) L 02/14/25 14:46 MCHC 32.4 g/dL (30-55) 02/14/25 14:46 RDW 18.6 % (12.1-15.1) H 02/14/25 14:46 Plt Count 631 10^3/cmm (157-399) H 02/14/25 14:46 MPV 10.3 fL (7.4-10.4) 02/14/25 14:46 Neut % (Auto) 62.3 % 02/14/25 14:46 Lymph % (Auto) 29.8 % 02/14/25 14:46 Steele % (Auto) 6.3 % 02/14/25 14:46 Eos % (Auto) 0.9 % 02/14/25 14:46 Baso % (Auto) 0.4 % 02/14/25 14:46 Neut # (Auto) 7.98 10^3/uL (1.8-7.7) H 02/14/25 14:46 Lymph # (Auto) 3.8 10^3/uL (0.8-4.8) 02/14/25 14:46 Steele # (Auto) 0.8 10^3/uL (0.2-0.9) 02/14/25 14:46 Eos # (Auto) 0.1 10^3/uL (0.0-0.8) 02/14/25 14:46 Baso # (Auto) 0.1 10^3/uL (0.0-0.1) 02/14/25 14:46 Nucleated RBC % (auto) 0 % 02/14/25 14:46 Nucleated RBCs # 0.0 /100WBC 02/14/25 14:46 Specimen Type Arterial 02/14/25 16:20 Sample Site Radial, right 02/14/25 16:20 ABG pH 7.43 (7.35-7.45) 02/14/25 16:20 ABG pCO2 32.1 mmHg (35-45) L 02/14/25 16:20 ABG pO2 109.0 mmHg (80.0-100.0) H 02/14/25 16:20 ABG PO2/FiO2 Ratio 519 02/14/25 16:20 ABG HCO3 21.4 mmol/L (22-26) L 02/14/25 16:20 ABG O2 Saturation 99.1 02/14/25 16:20 ABG Base Excess -2.0 mmol/L (-2.0-2.0) 02/14/25 16:20 Godfrey Test Pos 02/14/25 16:20 A-a O2 Gradient Not Reportable 02/14/25 16:20 Hematocrit 41.8 % (37-47) 02/14/25 16:20 Hgb O2 Saturation 94.9 % (95-100) L 02/14/25 16:20 Carboxyhemoglobin 3.3 %THgb (0.4-20.1) 02/14/25 16:20 Methemoglobin 0.9 % (0.4-1.5) 02/14/25 16:20 Total Hemoglobin 13.6 g/dL (12-16) 02/14/25 16:20 Sodium 139.0 mmol/L (131-143) 02/14/25 16:20 Potassium 4.3 mmol/L (3.5-5.0) 02/14/25 16:20 Glucose 94.0 mg/dL (70-115) 02/14/25 16:20 Ionized Calcium 1.3 mmol/L (1.1-1.4) 02/14/25 16:20 O2 Delivery Device Room air 02/14/25 16:20 FiO2 21.0 % 02/14/25 16:20 Scheduling Administrator ID Walci 02/14/25 16:20 Sodium 136 mmol/L (136-145) 02/14/25 14:46 Potassium 3.9 mmol/L (3.5-5.1) 02/14/25 14:46 Chloride 97 mmol/L (98-107) L 02/14/25 14:46 Carbon Dioxide 21 mmol/L (22-29) L 02/14/25 14:46 Anion Gap 21.9 (5-19) H 02/14/25 14:46 BUN 30 mg/dL (6-20) H 02/14/25 14:46 Creatinine 2.2 mg/dL (0.5-0.9) H 02/14/25 14:46 GFR Calculation 23.1 mL/min (90-130) L 02/14/25 14:46 Glucose 71 mg/dL (65-115) 02/14/25 14:46 Calculated Osmolality 287 mOsm/kg (285-295) 02/14/25 14:46 Lactic Acid 0.9 mmol/L (0.5-2.2) 02/14/25 16:38 Calcium 10.1 mg/dL (8.5-10.5) 02/14/25 14:46 Magnesium 2.1 mg/dL (1.7-2.3) 02/14/25 14:46 Total Bilirubin 0.4 mg/dL (0.15-1.2) 02/14/25 14:46 AST 16 U/L (0-32) 02/14/25 14:46 ALT 10 U/L (0-33) 02/14/25 14:46 Alkaline Phosphatase 173 U/L (35-105) H 02/14/25 14:46 Creatine Kinase 50 U/L (26-192) 02/14/25 14:46 C-Reactive Protein 7.4 mg/L (0.0-4.9) H 02/14/25 14:46 Total Protein 8.8 g/dL (6.6-8.7) H 02/14/25 14:46 Albumin 4.7 g/dL (3.5-5.2) 02/14/25 14:46 Globulin 4.1 g/dL (1.3-4.6) 02/14/25 14:46 Lipase 53 U/L (13-60) 02/14/25 14:46 Procalcitonin 0.07 ng/mL (0-0.5) 02/14/25 14:46 Urine Color Yellow (Yellow) 02/14/25 17:17 Urine Appearance Cloudy (CLEAR) A 02/14/25 17:17 Urine pH 5.0 (5-7) 02/14/25 17:17 Ur Specific [place] 1.017 (1.005-1.030) 02/14/25 17:17 Urine Protein Trace (Negative) A 02/14/25 17:17 Urine Glucose (UA) Negative (Normal) 02/14/25 17:17 Urine Ketones Trace (Negative) 02/14/25 17:17 Urine Blood Negative (Negative) 02/14/25 17:17 Urine Nitrate Positive (Negative) A 02/14/25 17:17 Urine Bilirubin Negative (Negative) 02/14/25 17:17 Urine Urobilinogen 1.0 mg/dL (Negative) 02/14/25 17:17 Ur Leukocyte Esterase 1+ (Negative) A 02/14/25 17:17 Urine RBC None /hpf (0-2) 02/14/25 17:17 Urine WBC 15-25 /hpf (0-5) H 02/14/25 17:17 Ur Squamous Epith Cells 15-25 /hpf (0-5) H 02/14/25 17:17 Amorphous Sediment Not Reportable 02/14/25 17:17 Urine Bacteria 2+ /hpf (NONE) H 02/14/25 17:17 Discharge Plan Discharge Patient Disposition: Admitted As Inpatient Clinical Impression: Dehydration, FAWN (acute kidney injury) Nausea & vomiting Qualifiers: Vomiting type: unspecified Qualified Code(s): R11.2 - Nausea with vomiting, unspecified Condition: Stable Coding Level of Care Code ED Director Adult for Orlando Patel
[2025-02-14 16:31] LABS: ABG PCO2 32.1 mmHg (35-45); ABG PH Result 7.43 (7.35-7.45); Arterial Blood Gas Hematocrit 41.8 % (37-47); Blood Gas Allen Test Pos; Blood Gas Operator Identificat WALCI; Blood Gas Sample Site Radial, right; Blood Gas Sample Type Arterial; Carboxyhemoglobin 3.3 %THgb (0.4-20.1); Glucose Level-ABG 94.0 mg/dL (70-115); HCO3 ABG 21.4 mmol/L (22-26); Ionized Calcium Level - ABG 1.3 mmol/L (1.1-1.4); Methemoglobin 0.9 % (0.4-1.5); Oxygen Saturation ABG 99.1; PO2 ABG 109.0 mmHg (80.0-100.0); PO2 FiO2 Ratio Arterial Blood 519; Potassium Level - ABG 4.3 mmol/L (3.5-5.0); Sodium Level - ABG 139.0 mmol/L (131-143)
[2025-02-14 16:52] LABS: Alanine Aminotransferase 10 U/L (0-33); Albumin Level 4.7 g/dL (3.5-5.2); Alkaline Phosphatase 173 U/L (35-105); Anion Gap 21.9 (5-19); Aspartate Amino Transferase 16 U/L (0-32); Blood Urea Nitrogen 30 mg/dL (6-20); Calcium 10.1 mg/dL (8.5-10.5); Carbon Dioxide 21 mmol/L (22-29); Chloride 97 mmol/L (98-107); Creatinine Clr Calc Pharmacy 30.1198; Globulin 4.1 g/dL (1.3-4.6); Glucose 71 mg/dL (65-115); Lipase 53 U/L (13-60); Magnesium 2.1 mg/dL (1.7-2.3); Osmolality Calculated 287 mOsm/kg (285-295); Potassium 3.9 mmol/L (3.5-5.1); Sodium 136 mmol/L (136-145); Total Protein 8.8 g/dL (6.6-8.7)
[2025-02-14 17:19] LABS: Lactic Sepsis W/Reflex 0.9 mmol/L (0.5-2.2)
[2025-02-14 17:25] LABS: Glucose Urine UA Negative (Normal); Nitrate Urine Positive (Negative); Specific Gravity, Urine 1.017 (1.005-1.030)
[2025-02-14 17:34] LABS: UA Manual Slide Review YES
[2025-02-14 17:35] LABS: Add Urine Microscopic? YES
[2025-02-14] MEDS: cefTRIAXone 1,000 mg SDV 1000 MG IVP (17:55)
--- NOTE | 2025-02-14 18:24 | CTR_ITS ---
PROCEDURE INFORMATION: Exam: CT Abdomen And Pelvis Without Contrast Exam date and time: 02/14/2025 6:37 PM Age: 54 years old Clinical indication: Pain and abnormal findings; Abnormal lab test; Abnormal kidney function lab tests; Nausea and vomiting; Abdominal pain; Generalized; Diffuse abd pain with n/v and pratibha. TECHNIQUE: Imaging protocol: Computed tomography of the abdomen and pelvis without contrast. Radiation optimization: All CT scans at this facility use at least one of these dose optimization techniques: automated exposure control; mA and/or kV adjustment per patient size (includes targeted exams where dose is matched to clinical indication); or iterative reconstruction. COMPARISON: CT kidney stone [id number] 01/20/2025 1:38 AM RADIATION DOSE METRICS: Total DLP (mGy-cm): 800.56 FINDINGS: Liver: Normal. No mass. Gallbladder and biliary ducts: Normal. No calcified stones. No ductal dilation. Pancreas: Normal. No ductal dilation. Spleen: Normal. No splenomegaly. Adrenal glands: Normal. No mass. Kidneys and ureters: Normal. No hydronephrosis. Stomach and bowel: Unremarkable. No obstruction. No mucosal thickening. Appendix: No evidence of appendicitis. Intraperitoneal space: Unremarkable. No free air. No significant fluid collection. Vasculature: Unremarkable. No abdominal aortic aneurysm. Lymph nodes: Unremarkable. No enlarged lymph nodes. Urinary bladder: Unremarkable as visualized. Reproductive: Unremarkable as visualized. Bones/joints: Unremarkable. No acute fracture. Soft tissues: Unremarkable. CT/CT abdomen pelvis wo con [id number] IMPRESSION: No acute findings.
--- NOTE | 2025-02-14 18:43 | P.HP_ITS ---
Providers/Chief Complaint 2 Primary Care Provider: JEOVANY Mitchell Chief Complaint: abd pain History of Present Illness Britt Avalos is a 54 year old female with a past medical history of Type 2 diabetes mellitus, history of pulm embolism on Eliquis therapy, who presents [facility] due to nausea, vomiting, lightheadedness, dizziness, poor oral intake, abdominal pain. Patient lives in a home with suboptimal air conditioning, it has been in the high 90s over the last few days, she has been trying to hydrate well, but still feels has been dehydrated for the last few days, but recently she has had decreased oral intake, feeling nausea, vomiting, abdominal pain, she has not had a bowel movement in 3 days she tells me, no blood or black stools, she also feels lightheaded and dizzy, no facial droop, slurring of words, no focal weakness, no chest pain, no palpitations, she is taking her medication as prescribed, no history of food poisoning, no history of bowel obstruction, no flank pain, does report dysuria Review of Systems 2 Const: Reports: fatigue and malaise; Denies: fever(s) Card: Denies: chest pain Resp: Denies: dyspnea GI: Reports: abdominal pain, nausea and vomiting Medications/Allergies Home Medications ?Medication ?Instructions ?Recorded ?Confirmed ?Last Taken ?Type cetirizine 10 mg capsule (Zyrtec) 10 mg PO DAILY PRN a llergies 04/09/24 01/20/25 Unknown History fluticasone propionate 50 1 spray intranasal DAILY PRN 04/09/24 01/20/25 Unknown History mcg/actuation nasal allergies spray,suspension (Flonase Allergy Relief) metformin 500 mg tablet,extended 1,000 mg (2 x 500 mg) PO BID #360 09/02/24 01/20/25 01/19/25 Rx release 24 hr tabs pregabalin 150 mg capsule 150 mg PO BID 30 days #60 ca ps 09/02/24 01/20/25 01/19/25 Rx duloxetine 60 mg capsule,delayed 60 mg PO DAILY 30 day s #30 caps 10/13/24 01/20/25 01/19/25 Rx release albuterol sulfate 90 mcg/actuation 2 puff inhalation Q ID PRN 01/20/25 01/20/25 Unknown History aerosol inhaler Shortness Of Breath lisinopril 40 mg tablet 40 mg PO DAILY 01/20/2512/3101/19/25 History Held on 01/21/25. Instructions: Resume on 01/28/25. hold until you see dj mupirocin 2 % topical ointment 1 applic topical BID OH N Skin 01/20/25 01/20/25 Unknown History Irritation rivaroxaban 10 mg tablet (Xarelto) 10 mg PO QPM 01/20/25 01/18/25 History tizanidine 2 mg tablet 2 mg PO Q8H PRN muscle spasm s 01/20/25 01/20/25 Unknown History trazodone 100 mg tablet 100 mg PO BEDTIME 01/20/25 0 01/20/25 01/18/25 History Allergies Allergy/AdvReac Type Severity Reaction Status Date / Time Penicillins Allergy Intermediate ADR-Itching Verified 08/21/24 14:04 PFSH Acute 2 PFSH: Medical History Cellulitis of foot Cellulitis of right foot Cellulitis Allergic contact dermatitis of scalp Urinary tract infection Hx of mitral valve disorder History of MRSA infection Nasal sore Seborrheic dermatitis Iron deficiency anemia Neuropathy of both feet Diabetic foot Amputated toe of right foot Amputated toe of left foot Influenza vaccine needed Chronic obstructive pulmonary disease Muscle spasm Breast cancer screening by mammogram Vitamin D deficiency Chronic anticoagulation Diabetic neuropathy, painful Insomnia Anxiety and depression Gastroesophageal reflux disease Hx pulmonary embolism Essential hypertension 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 Social History Smoking and tobacco/nicotine status: current every day tobacco/nicotine user cigarettes Packs smoked per day: 1 Years cigarettes smoked: 35 Quit status (tobacco/nicotine): not considering quitting Second hand smoke exposure: No Alcohol intake: former Year of sobriety/quit date alcohol: 3 Former alcohol use details: vodka and tequila Substance/Drug Use: current Substance/Drug use frequency: daily Adopted: No Caregiver/support person: Yes (lives with friend) Lives independently: No Household members: significant other Housing: Apartment Marital status: Life Partner Vitals/I&O/Wt Last Vital Signs Temp 97.7 F 02/14/25 15:47 Pulse 101 H 02/14/25 15:47 Resp 18 02/14/25 15:47 BP 118/86 02/14/25 17:10 Pulse Ox 93 02/14/25 18:06 O2 Del Method Room Air 02/14/25 18:06 02/14/25 02/14/25 02/14/25 06:59 14:59 22:59 Intake Total 500 / 500 Balance 500 / 500 Weight last 48 hrs Weight 88.451 kg Physical Exam 2 Const: COMMON NORMALS: no acute distress and patient oriented x3 HENMT: COMMON NORMALS: normocephalic HEAD & SCALP: normocephalic Neck/C-Spine: COMMON NORMALS: no JVD Resp: COMMON NORMALS: normal respiratory effort, No retractions, No use of accessory muscles and clear to auscultation bilaterally AUSCULTATION: clear to auscultation bilaterally Cardio: COMMON NORMALS: no JVD, regular rate, regular rhythm, S1 normal heart sound present and S2 normal heart sound present RATE: regular rate RHYTHM: regular rhythm HEART SOUNDS: S1 normal heart sound present and S2 normal heart sound present GI: OTHER: Abdomen is soft, distended, diminished bowel sounds, no guarding, no rebound, rigidity, does have diffuse tenderness Extremity: COMMON NORMALS: no calf tenderness and no pedal edema Neuro: COMMON NORMALS: patient oriented x3, CN's II-XII intact bilaterally and moves all extremities Psych: COMMON NORMALS: mental status grossly normal Data 02/14/25 14:46 02/14/25 14:46 A&P Assessment and plan 1. Abdominal pain: 2. Hx pulmonary embolism: 3. FAWN (acute kidney injury): 4. Dehydration: 5. Urinary tract infection: 6. Heat exhaustion: Plan: Abdominal pain - CT scan abdomen pelvis Heat exhaustion, IV fluids Acute kidney injury, secondary dehydration - IV fluids Urinary tract infection - Rocephin Type 2 diabetes mellitus, low-dose Full code Xarelto for DVT prophylaxis PDMP PDMP Reviewed: Not Reviewed Attestations 2 Medical Necessity Statement*: Patient requires hospitalization, outpatient observation, for dehydration, heat exhaustion, UTI, FAWN, abdominal pain Diagnoses Abdominal pain R10.9 Hx pulmonary embolism Z86.711 FAWN (acute kidney injury) N17.9 Dehydration E86.0 Urinary tract infection N39.0 Heat exhaustion T67.5XXA
[2025-02-14 19:15] LABS: Procalcitonin 0.07 ng/mL (0-0.5)
[2025-02-14 21:33] LABS: Thyroid Stimulating Hormone 1.04 uIU/mL (0.27-4.20)
[2025-02-14 22:05] LABS: Estmated Average Glucose 114; Hemoglobin A1C 5.6 % (4.0-6.0)
[2025-02-14] MEDS: pantoprazole 40 mg SDV IVP (23:04)
[2025-02-15] VITALS (11 sets, daily range): BP systolic 92–156; BP diastolic 51–85; PULSE 53–75; RESP 16–18; TEMP 36.3–36.9; O2SAT 94–97
[2025-02-15 06:37] LABS: Alanine Aminotransferase 7 U/L (0-33); Albumin Level 3.7 g/dL (3.5-5.2); Alkaline Phosphatase 145 U/L (35-105); Anion Gap 14.3 (5-19); Aspartate Amino Transferase 13 U/L (0-32); Blood Urea Nitrogen 25 mg/dL (6-20); Calcium 9.2 mg/dL (8.5-10.5); Carbon Dioxide 25 mmol/L (22-29); Chloride 104 mmol/L (98-107); Globulin 3.2 g/dL (1.3-4.6); Glucose 73 mg/dL (65-115); Magnesium 2.2 mg/dL (1.7-2.3); Osmolality Calculated 291 mOsm/kg (285-295); Potassium 4.3 mmol/L (3.5-5.1); Sodium 139 mmol/L (136-145); Total Protein 6.9 g/dL (6.6-8.7)
[2025-02-15 06:50] LABS: Creatinine Clr Calc Pharmacy 47.5881
[2025-02-15 08:57] LABS: Hematocrit 38.8 % (36-47); Hemoglobin 12.20 g/dL (11.27-16.99); Mean Corpuscular HGB Conc 31.4 g/dL (30-55); Mean Corpuscular Hemoglobin 26.6 pg (27-33); Mean Corpuscular Volume 84.5 fl (85-98); Nucleated Red Blood Cells % 0 %; Platelet Count 377 10^3/cmm (157-399); Red Blood Count 4.59 10^6/uL (3.85-5.65); White Blood Count 5.91 10^3/uL (3.29-11.43)
--- NOTE | 2025-02-15 12:00 | P.PN_ITS ---
Subjective 2 Subjective: Patient was seen this morning, she does feel nauseous, she wants to try to eat something does have left flank pain, no fevers, no chills, does report lightheaded Vitals/I&O/Wt Last Vital Signs Temp 98.1 F 02/15/25 10:59 Pulse 67 02/15/25 10:59 Resp 17 02/15/25 10:59 BP 156/78 02/15/25 10:59 Pulse Ox 96 02/15/25 10:59 O2 Del Method Room Air 02/15/25 10:59 02/14/25 02/15/25 02/15/25 22:59 06:59 14:59 Intake Total 500 / 500 870.833 / 1370.833 480 / 480 Output Total 900 / 900 Balance 500 / 500 870.833 / 1370.833 -420 / -420 Weight last 48 hrs Weight 89.358 kg Weight 89.403 kg Weight 88.451 kg Physical Exam 2 Const: COMMON NORMALS: no acute distress and patient oriented x3 Eye: COMMON NORMALS: Equal, round and reactive pupils present and EOMs intact bilaterally PUPIL: Yes Equal, round and reactive pupils present Resp: COMMON NORMALS: normal respiratory effort, No retractions, No use of accessory muscles and clear to auscultation bilaterally AUSCULTATION: clear to auscultation bilaterally Cardio: COMMON NORMALS: regular rate, regular rhythm, S1 normal heart sound present and S2 normal heart sound present RATE: regular rate RHYTHM: r egular rhythm HEART SOUNDS: S1 normal heart sound present and S2 normal heart sound present GI: COMMON NORMALS: Normal to inspection, nondistended, normoactive bowel sounds present and non-tender Extremity: COMMON NORMALS: no pedal edema Neuro: COMMON NORMALS: patient oriented x3 and CN's II-XII intact bilaterally Psych: COMMON NORMALS: mental status grossly normal Data 02/15/25 08:43 02/15/25 05:14 Micro: Microbiology 02/14/25 19:23 Blood Culture - Preliminary Blood SPECIMEN COLLECTED 02/14/25 16:38 Blood Culture - Preliminary Blood SPECIMEN COLLECTED A&P Assessment and plan 1. Abdominal pain: 2. Hx pulmonary embolism: 3. FAWN (acute kidney injury): 4. Dehydration: 5. Urinary tract infection: 6. Heat exhaustion: Plan: Abdominal pain, - CT scan abdomen pelvis no acute findings - Does have left CVA tenderness, highly suspicious for pyelonephritis clinically Heat exhaustion, IV fluids Acute kidney injury, secondary dehydration - IV fluids Urinary tract infection, concern for pyelonephritis - Rocephin Type 2 diabetes mellitus, low-dose Full code Xarelto for DVT prophylaxis PDMP PDMP Reviewed: Not Reviewed Attestations 2 Medical Necessity Statement*: Patient requires hospitalization for UTI, pyelonephritis work on IV antibiotics, dehydration Diagnoses Abdominal pain R10.9 Hx pulmonary embolism Z86.711 FAWN (acute kidney injury) N17.9 Dehydration E86.0 Urinary tract infection N39.0 Heat exhaustion T67.5XXA
--- NOTE | 2025-02-15 13:44 | PC.NURSE ---
Dr. Charles gave verbal orders and read back for nicotine patch 14 mg daily.
[2025-02-15] MEDS: cefTRIAXone 1,000 mg SDV 1000 MG IVP (17:22)
[2025-02-15] MEDS: pantoprazole 40 mg SDV IVP (21:11)
[2025-02-16] VITALS (10 sets, daily range): BP systolic 120–166; BP diastolic 64–87; PULSE 67–80; RESP 14–18; TEMP 36.5–36.8; O2SAT 96–99
[2025-02-16 05:19] LABS: Hematocrit 40.7 % (36-47); Hemoglobin 12.50 g/dL (11.27-16.99); Mean Corpuscular HGB Conc 30.7 g/dL (30-55); Mean Corpuscular Hemoglobin 27.0 pg (27-33); Mean Corpuscular Volume 87.9 fl (85-98); Nucleated Red Blood Cells % 0 %; Platelet Count 373 10^3/cmm (157-399); Red Blood Count 4.63 10^6/uL (3.85-5.65); White Blood Count 7.45 10^3/uL (3.29-11.43)
[2025-02-16 07:07] LABS: Alanine Aminotransferase 7 U/L (0-33); Albumin Level 3.6 g/dL (3.5-5.2); Alkaline Phosphatase 138 U/L (35-105); Anion Gap 15.8 (5-19); Aspartate Amino Transferase 11 U/L (0-32); Blood Urea Nitrogen 15 mg/dL (6-20); Calcium 9.0 mg/dL (8.5-10.5); Carbon Dioxide 21 mmol/L (22-29); Chloride 108 mmol/L (98-107); Creatinine Clr Calc Pharmacy 70.4273; Globulin 3.2 g/dL (1.3-4.6); Glucose 86 mg/dL (65-115); Magnesium 1.8 mg/dL (1.7-2.3); Osmolality Calculated 290 mOsm/kg (285-295); Potassium 4.8 mmol/L (3.5-5.1); Sodium 140 mmol/L (136-145); Total Protein 6.8 g/dL (6.6-8.7)
--- NOTE | 2025-02-16 12:36 | P.DS_ITS ---
Discharge Providers Date of Admission: 02/14/25 18:30 Date of Discharge: February 16, 2025 Attending Provider at Admission: Andrea Charles MD Attending Provider at Discharge: Jenni Manning MD Primary Care Provider: JEOVANY Mitchell Diagnoses at Discharge Discharge Diagnosis 1. Abdominal pain: 2. Hx pulmonary embolism: 3. FAWN (acute kidney injury): 4. Dehydration: 5. Acute cystitis without hematuria: 6. Heat exhaustion: Reason for Visit Reason for Visit: abd pain Hospital Course Hospital Course 54 year old female with a past medical history of Type 2 diabetes mellitus, history of pulm embolism on chronic anticoagulation, who presented [facility] due to nausea, vomiting, lightheadedness, dizziness, poor oral intake, abdominal pain. Patient reported poor living conditions. She lives in a suboptimal environment. There is no air conditioning. There is no running water. Patient says she has been out of all toilet paper and tissue paper recently. Patient was recently admitted to the hospital in December 2024 in similar circumstances at that time. She was found to have FAWN which improved with IV hydration. Today creatinine has trended down to 0.9. All additionally also diagnosed with heat exhaustion which improved with IV fluids. UA showed 15-25 WBCs, 15-25 squamous epithelial cells, 1 plight slightly of leukocyte Estrace, positive nitrate. Given flank tenderness a presumptive diagnosis of pyelonephritis was made. Urine culture is not available from this admission. Patient was treated with Rocephin 1 g IV every 24 hours during hospital course. It would be unhelpful at this point to obtain urine culture. She has been transition to oral ciprofloxacin at the time of discharge for a diagnosis of presumed pyelonephritis. She is currently much improved and discharged in a stable state today. Her home dose of lisinopril was discontinued at discharge due to FAWN, second episode in 2 months. Antihypertensive regimen was switched to amlodipine 5 mg p.o. daily instead Physical Exam Narrative: General: No acute distress, AO x3 HEENT: PERRLA, pupils bilaterally equal and reactive, pallors not present Chest: Normal vesicular breath sounds, no added sounds, equal good air entry bilaterally CVS: S1-S2 regular, no murmurs, no tachycardia, no gallops, no rubs Abdomen: Soft, nontender, no organomegaly, bowel sounds present Neuro: No focal deficits, no facial deformity, AO x3, power 5/5 in all limbs Discharge Data Studies Completed and Pending Completed Studies During Hospitalization Category Date Time Status CT abdomen pelvis wo con [id number] Stat Cat Scan 02/14/25 18:[address] head wo con* [id number] Urgent Cat Scan 02/14/25 16:16 Completed Pending at discharge Category Date Time Status Blood Culture Stat Lab 02/14/25 19:23 Results Complete Blood Count w/Auto AM LABS Lab 02/17/25 04:00 Ordered Comprehensive Metabolic Panel AM LABS Lab 02/17/25 04:00 Ordered Magnesium AM LABS Lab 02/17/25 04:00 Ordered Phosphorus AM LABS Lab 02/17/25 04:00 Ordered Radiology Impressions Head CT 02/14/25 16:16 IMPRESSION: No acute intracranial abnormality. Abdomen/Pelvis CT 02/14/25 18:24 IMPRESSION: No acute findings. Laboratory Results WBC 7.45 10^3/uL (3.29-11.43) 02/16/25 05:07 Corrected WBC Cancelled 02/15/25 05:14 RBC 4.63 10^6/uL (3.85-5.65) 02/16/25 05:07 Hgb 12.50 g/dL (11.27-16.99) 02/16/25 05:07 Hct 40.7 % (36-47) 02/16/25 05:07 MCV 87.9 fl (85-98) 02/16/25 05:07 MCH 27.0 pg (27-33) 02/16/25 05:07 MCHC 30.7 g/dL (30-55) 02/16/25 05:07 RDW 17.9 % (12.1-15.1) H 02/16/25 05:07 Plt Count 373 10^3/cmm (157-399) 02/16/25 05:07 MPV 10.3 fL (7.4-10.4) 02/16/25 05:07 Gran % Cancelled 02/15/25 05:14 Neut % (Auto) 62.8 % 02/16/25 05:07 Lymph % (Auto) 29.4 % 02/16/25 05:07 Louisa % (Auto) 6.0 % 02/16/25 05:07 Eos % (Auto) 1.1 % 02/16/25 05:07 Baso % (Auto) 0.4 % 02/16/25 05:07 Neut # (Auto) 4.68 10^3/uL (1.8-7.7) 02/16/25 05:07 Lymph # (Auto) 2.2 10^3/uL (0.8-4.8) 02/16/25 05:07 Louisa # (Auto) 0.5 10^3/uL (0.2-0.9) 02/16/25 05:07 Eos # (Auto) 0.1 10^3/uL (0.0-0.8) 02/16/25 05:07 Baso # (Auto) 0.0 10^3/uL (0.0-0.1) 02/16/25 05:07 Absolute Gran (auto) Cancelled 02/15/25 05:14 Nucleated RBC % (auto) 0 % 02/16/25 05:07 Nucleated RBCs # 0.0 /100WBC 02/16/25 05:07 Specimen Type Arterial 02/14/25 16:20 Sample Site Radial, right 02/14/25 16:20 ABG pH 7.43 (7.35-7.45) 02/14/25 16:20 ABG pCO2 32.1 mmHg (35-45) L 02/14/25 16:20 ABG pO2 109.0 mmHg (80.0-100.0) H 02/14/25 16:20 ABG PO2/FiO2 Ratio 519 02/14/25 16:20 ABG HCO3 21.4 mmol/L (22-26) L 02/14/25 16:20 ABG O2 Saturation 99.1 02/14/25 16:20 ABG Base Excess -2.0 mmol/L (-2.0-2.0) 02/14/25 16:20 Godfrey Test Pos 02/14/25 16:20 A-a O2 Gradient Not Reportable 02/14/25 16:20 Hematocrit 41.8 % (37-47) 02/14/25 16:20 Hgb O2 Saturation 94.9 % (95-100) L 02/14/25 16:20 Carboxyhemoglobin 3.3 %THgb (0.4-20.1) 02/14/25 16:20 Methemoglobin 0.9 % (0.4-1.5) 02/14/25 16:20 Total Hemoglobin 13.6 g/dL (12-16) 02/14/25 16:20 Sodium 139.0 mmol/L (131-143) 02/14/25 16:20 Potassium 4.3 mmol/L (3.5-5.0) 02/14/25 16:20 Glucose 94.0 mg/dL (70-115) 02/14/25 16:20 Ionized Calcium 1.3 mmol/L (1.1-1.4) 02/14/25 16:20 O2 Delivery Device Room air 02/14/25 16:20 FiO2 21.0 % 02/14/25 16:20 Marine Photographer ID [place] 02/14/25 16:20 Sodium 140 mmol/L (136-145) 02/16/25 05:07 Potassium 4.8 mmol/L (3.5-5.1) 02/16/25 05:07 Chloride 108 mmol/L (98-107) H 02/16/25 05:07 Carbon Dioxide 21 mmol/L (22-29) L 02/16/25 05:07 Anion Gap 15.8 (5-19) 02/16/25 05:07 BUN 15 mg/dL (6-20) 02/16/25 05:07 Creatinine 0.9 mg/dL (0.5-0.9) 02/16/25 05:07 GFR Calculation 64.8 mL/min (90-130) L 02/16/25 05:07 Glucose 86 mg/dL (65-115) 02/16/25 05:07 POC Glucose 92 mg/dL (70-110) 02/16/25 10:50 Estimat Average Glucose 114 02/14/25 14:46 Hemoglobin A1c 5.6 % (4.0-6.0) 02/14/25 14:46 Calculated Osmolality 290 mOsm/kg (285-295) 02/16/25 05:07 Lactic Acid 0.9 mmol/L (0.5-2.2) 02/14/25 16:38 Calcium 9.0 mg/dL (8.5-10.5) 02/16/25 05:07 Phosphorus 2.7 mg/dL (2.5-4.5) 02/16/25 05:07 Magnesium 1.8 mg/dL (1.7-2.3) 02/16/25 05:07 Total Bilirubin 0.2 mg/dL (0.15-1.2) 02/16/25 05:07 AST 11 U/L (0-32) 02/16/25 05:07 ALT 7 U/L (0-33) 02/16/25 05:07 Alkaline Phosphatase 138 U/L (35-105) H 02/16/25 05:07 Creatine Kinase 50 U/L (26-192) 02/14/25 14:46 C-Reactive Protein 7.4 mg/L (0.0-4.9) H 02/14/25 14:46 Total Protein 6.8 g/dL (6.6-8.7) 02/16/25 05:07 Albumin 3.6 g/dL (3.5-5.2) 02/16/25 05:07 Globulin 3.2 g/dL (1.3-4.6) 02/16/25 05:07 Lipase 53 U/L (13-60) 02/14/25 14:46 Procalcitonin 0.07 ng/mL (0-0.5) 02/14/25 14:46 TSH 1.04 uIU/mL (0.27-4.20) 02/14/25 14:46 Urine Color Yellow (Yellow) 02/14/25 17:17 Urine Appearance Cloudy (CLEAR) A 02/14/25 17:17 Urine pH 5.0 (5-7) 02/14/25 17:17 Ur Specific [place] 1.017 (1.005-1.030) 02/14/25 17:17 Urine Protein Trace (Negative) A 02/14/25 17:17 Urine Glucose (UA) Negative (Normal) 02/14/25 17:17 Urine Ketones Trace (Negative) 02/14/25 17:17 Urine Blood Negative (Negative) 02/14/25 17:17 Urine Nitrate Positive (Negative) A 02/14/25 17:17 Urine Bilirubin Negative (Negative) 02/14/25 17:17 Urine Urobilinogen 1.0 mg/dL (Negative) 02/14/25 17:17 Ur Leukocyte Esterase 1+ (Negative) A 02/14/25 17:17 Urine RBC None /hpf (0-2) 02/14/25 17:17 Urine WBC 15-25 /hpf (0-5) H 02/14/25 17:17 Ur Squamous Epith Cells 15-25 /hpf (0-5) H 02/14/25 17:17 Amorphous Sediment Not Reportable 02/14/25 17:17 Urine Bacteria 2+ /hpf (NONE) H 02/14/25 17:17 Vitals Last Vital Signs Temp 98.2 F 02/16/25 11:54 Pulse 77 02/16/25 12:07 Resp 16 02/16/25 11:54 BP 132/79 02/16/25 12:07 Pulse Ox 96 02/16/25 11:54 O2 Del Method Room Air 02/16/25 11:54 Discharge Plan Discharge Patient Disposition: Home Condition: Stable Prescriptions: New amlodipine 5 mg tablet 5 mg PO DAILY Qty: 30 0RF ciprofloxacin HCl [Cipro] 500 mg tablet 500 mg PO Q12H 7 Days Qty: 14 0RF Continued Zyrtec 10 mg capsule 10 mg PO DAILY PRN (Reason: allergies) fluticasone propionate [Flonase Allergy Relief] 50 mcg/actuation spray,suspension 1 spray intranasal DAILY PRN (Reason: allergies) Rx Instructions: administer into each nostril metformin 500 mg tablet extended release 24 hr 1,000 mg PO BID Qty: 360 0RF pregabalin 150 mg capsule 150 mg PO BID 30 Days Qty: 60 2RF duloxetine 60 mg capsule,delayed release(DR/EC) 60 mg PO DAILY 30 Days Qty: 30 2RF Rx Instructions: Can have 90 day supply if insurance is agreeable tizanidine 2 mg tablet 2 mg PO Q8H PRN (Reason: muscle spasms) trazodone 100 mg tablet 100 mg PO BEDTIME albuterol sulfate 90 mcg/actuation HFA aerosol inhaler 2 puff inhalation QID PRN (Reason: Shortness Of Breath) Xarelto 10 mg tablet 10 mg PO QPM pantoprazole [Protonix] 40 mg Tablet,Delayed Release (Dr/Ec) 40 mg PO DAILY Discontinued lisinopril 40 mg tablet 40 mg PO DAILY Referrals: JONY Diaz, NAIL MAKING MACHINE SETTER [Primary Care Provider, Family Practice] - 02/20/25 11:00 am Referral Note: Patient Instructions: Opioid Safety, Patient Portal & Elsie Instructions Discharge Attestations Time Spent in Discharge Care*: greater than 30 min Quality Metrics Clinical Quality Measures [ No reported AMI, CVA or VTE this stay] Coding Level of Care Code Acute Code for Chg Fwd Diagnoses Abdominal pain R10.9 Hx pulmonary embolism Z86.711 FAWN (acute kidney injury) N17.9 Dehydration E86.0 Acute cystitis without hematuria N30.00 Urinary tract infection type: acute cystitis Hematuria presence: without hematuria Heat exhaustion T67.5XXA
[2025-02-16] MEDS: pantoprazole 40 mg SDV IVP (19:32)
--- NOTE | 2025-02-16 22:51 | PC.NURSE ---
pt continue to request to wait before taking trazadone
[2025-02-17] VITALS: BP 119/65; BP 119/70; BP 122/72; BP 130/85; PULSE 60; PULSE 66; PULSE 70; PULSE 79; RESP 16; TEMP 36.4; O2SAT 100
[2025-02-17 04:00] VITALS: RESP 16; TEMP 36.6; O2SAT 100
[2025-02-17 05:09] LABS: Hematocrit 38.1 % (36-47); Hemoglobin 11.90 g/dL (11.27-16.99); Mean Corpuscular HGB Conc 31.2 g/dL (30-55); Mean Corpuscular Hemoglobin 26.9 pg (27-33); Mean Corpuscular Volume 86.2 fl (85-98); Nucleated Red Blood Cells % 0 %; Platelet Count 340 10^3/cmm (157-399); Red Blood Count 4.42 10^6/uL (3.85-5.65); White Blood Count 5.87 10^3/uL (3.29-11.43)
[2025-02-17 05:34] LABS: Alanine Aminotransferase 7 U/L (0-33); Albumin Level 3.7 g/dL (3.5-5.2); Alkaline Phosphatase 138 U/L (35-105); Anion Gap 13.5 (5-19); Aspartate Amino Transferase 14 U/L (0-32); Blood Urea Nitrogen 12 mg/dL (6-20); Calcium 9.3 mg/dL (8.5-10.5); Carbon Dioxide 25 mmol/L (22-29); Chloride 107 mmol/L (98-107); Creatinine Clr Calc Pharmacy 86.4277; Globulin 3.0 g/dL (1.3-4.6); Glucose 85 mg/dL (65-115); Magnesium 1.5 mg/dL (1.7-2.3); Osmolality Calculated 291 mOsm/kg (285-295); Potassium 4.5 mmol/L (3.5-5.1); Sodium 141 mmol/L (136-145); Total Protein 6.7 g/dL (6.6-8.7)
[2025-02-17 06:00] VITALS: PULSE 71
[2025-02-17 08:10] VITALS: BP 146/88; PULSE 93; RESP 17; TEMP 37; O2SAT 96
[2025-02-17] MEDS: ondansetron 2 mg/ML SDV 2 mL 4 MG IVP (08:41)
[2025-02-17 11:38] VITALS: BP 160/90; PULSE 74; RESP 18; TEMP 36.4; O2SAT 97
[2025-02-17 12:19] VITALS: BP 160/90; PULSE 74; RESP 16; TEMP 36.4; O2SAT 97
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
== END 2025-02-17 13:39 | disposition home or self-care (01) ==
LOC: ER 18:02 → MEDSURG 20:01
PROVIDERS: Admitting Provider Family Medicine; Emergency Provider Physician Assistant; PCP Nurse Practitioner Family; Visit Provider Student in an Organized Health Care Education/Training Program
DX: T67.5XXA Heat exhaustion, unspecified, initial encounter (principal); X30.XXXA Exposure to excessive natural heat, initial encounter; R10.9 Unspecified abdominal pain; E86.0 Dehydration; N17.9 Acute kidney failure, unspecified; Z86.711 Personal history of pulmonary embolism; N30.00 Acute cystitis without hematuria; Z79.01 Long term (current) use of anticoagulants; Z79.84 Long term (current) use of oral hypoglycemic drugs; K21.9 Gastro-esophageal reflux disease without esophagitis; E11.9 Type 2 diabetes mellitus without complications; Z86.14 Personal history of Methicillin resistant Staphylococcus aureus infection; D50.9 Iron deficiency anemia, unspecified; E11.40 Type 2 diabetes mellitus with diabetic neuropathy, unspecified; F41.8 Other specified anxiety disorders; E11.51 Type 2 diabetes mellitus with diabetic peripheral angiopathy without gangrene; F17.210 Nicotine dependence, cigarettes, uncomplicated
CPT/HCPCS: 36415; 36416; 36600; 70450; 74176; 80051; 80053; 81001; 82330; 82550; 82805; 82962; 83036; 83605; 83690; 83735; 84100; 84145; 84443; 85025; 86140; 87040; 93005; 94664; 96372; G0378; J0696; J1815; J2405; J2470; J7030; J9999

== ENCOUNTER → 2025-05-13 09:30 | Outpatient (BNVA) | payer MEDICARE, SELFPAY | PROVIDERS: PCP Nurse Practitioner Family; Visit Provider Nurse Practitioner Family | DX: E55.9 Vitamin D deficiency, unspecified (principal); I10 Essential (primary) hypertension; E11.21 Type 2 diabetes mellitus with diabetic nephropathy; I70.209 Unspecified atherosclerosis of native arteries of extremities, unspecified extremity; E61.2 Magnesium deficiency; E78.2 Mixed hyperlipidemia; Z09 Encounter for follow-up examination after completed treatment for conditions other than malignant neoplasm | CPT/HCPCS: 80053; 80061; 81003; 82306; 83735; 84443; 85025 ==